=== PATIENT | female | born 1935 | race Caucasian/White ===

== ENCOUNTER → 2016-09-12 | Outpatient (CLI) | payer MEDICARE, MEDICAID ==
[~2016-09-12] VITALS: Ht 147.3 cm; Wt 77.0 kg
[~2016-09-12] MED LIST: ALPR0.255 PO; ASPI-1093 PO; BENA10TA3 PO; BENA20 PO; CARV3 PO; CLOP75 PO; FURO20 PO; FURO40 PO; GLIP10 PO; ISOS10TA16 PO; KDUR10 PO; LEVO25TA9 PO; LORA10TA7 PO; SITA100 PO; SITA50 PO
[2016-09-12 10:56] VITALS: BP 190/70
[2016-09-12 13:11] LABS: GLUCOSE,POINT OF CARE 205 MG/DL (70-110)
== END | disposition home or self-care (01) ==
LOC: SRCNTR 10:49
PROVIDERS: ATTEND Hospitalist
DX: E11.9 Type 2 diabetes mellitus without complications (principal); I12.9 Hypertensive chronic kidney disease with stage 1 through stage 4 chronic kidney disease, or unspecified chronic kidney disease; N18.3 Chronic kidney disease, stage 3 (moderate); I25.10 Atherosclerotic heart disease of native coronary artery without angina pectoris; K21.9 Gastro-esophageal reflux disease without esophagitis; R91.1 Solitary pulmonary nodule; J44.9 Chronic obstructive pulmonary disease, unspecified; I38 Endocarditis, valve unspecified; K52.9 Noninfective gastroenteritis and colitis, unspecified; K57.92 Diverticulitis of intestine, part unspecified, without perforation or abscess without bleeding; E11.65 Type 2 diabetes mellitus with hyperglycemia; I35.0 Nonrheumatic aortic (valve) stenosis; J47.9 Bronchiectasis, uncomplicated; Z99.81 Dependence on supplemental oxygen
CPT/HCPCS: 82962; G0463

== ENCOUNTER 2016-09-13 03:26 | Inpatient (IN) | payer MEDICARE, MEDICAID ==
[~2016-09-13] VITALS: Ht 165.1 cm; Wt 75.9 kg
[~2016-09-13 03:26] MED LIST changes: -BENA20 PO; -FURO40 PO; -LEVO25TA9 PO; -SITA50 PO
[2016-09-13] MEDS ORDERED: IPRATROPIUM BROMIDE 0.5 MG/2.5 ML NEB SOLUTION NEB ONE ×2 (03:37→03:45)
[2016-09-13] MEDS ORDERED: ALBUTEROL SULFATE 2.5 MG/0.5 ML NEB SOLUTION NEB ONE ×3 (03:38→04:00)
[2016-09-13] MEDS ORDERED: ALBUTEROL SULFATE 5 MG/ML 20 ML NEB SOLN [BULK] NEB ONE (03:45)
[2016-09-13] MEDS ORDERED: NITROGLYCERIN 0.4 MG SUBLINGUAL TABLET #25 SL ONE (03:45)
[2016-09-13] MEDS ORDERED: NITROGLYCERIN 50 MG/D5% WATER 250 ML IV PRN (03:45)
[2016-09-13] MEDS ORDERED: FUROSEMIDE 40 MG/4 ML VIAL ONE (03:48)
[2016-09-13 03:55] LABS: ABG BASE EXCESS 0.1 mmol/L (-2.0-3.0); ABG HCO3 23.4 mmol/L (22.0-26.0); ABG OXYHEMOGLOBIN 97.7 % (94.0-100.0); ABG PCO2 59 mmHg (35-45); ABG PH 7.276 (7.35-7.450); TEMPERATURE, FAHRENHEIT, BG 98.6 FAHREN (96.0-98.6)
[2016-09-13 03:56] LABS: ALLEN TEST, BLOOD GAS Positive; IPAP, BG 16 cm H2O
[2016-09-13] MEDS ORDERED: FUROSEMIDE 40 MG/4 ML VIAL IVP ONE (04:00)
[2016-09-13 04:26] LABS: BASOPHILS # (AUTO) 0.05 K/uL (0.00-0.20); BASOPHILS % (AUTO) 0.4 % (0.0-2.0); EOSINOPHILS # (AUTO) 0.24 K/uL (0.00-0.70); EOSINOPHILS % (AUTO) 1.73 % (1.0-6.0); HEMATOCRIT 45.7 % (36-46); HEMOGLOBIN 14.9 g/dL (12.0-16.0); LYMPHOCYTES # (AUTO) 2.2 K/uL (1.0-4.8); MEAN CORPUSCULAR HEMOGLOBIN 29.5 pg (26.0-34.0); MEAN CORPUSCULAR HGB CONC 32.6 G/dL (31.0-37.0); MEAN CORPUSCULAR VOLUME 90 fL (80-100); MONOCYTES # (AUTO) 0.4 K/uL (0.1-1.0); MONOCYTES % (AUTO) 3.1 % (2.0-9.0); NEUTROPHILS # (AUTO) 10.8 K/uL (1.8-7.7); NEUTROPHILS % (AUTO) 78.8 % (40.0-70.0); PLATELET COUNT (AUTO) 255 K/uL (150-450); RED BLOOD CELL COUNT(AUTO) 5.06 MIL/uL (4.00-5.20); RED CELL DISTRIBUTION WIDTH 14.1 % (11.5-14.5); WHITE BLOOD COUNT (AUTO) 13.7 K/uL (4.5-11.0)
[2016-09-13 04:36] LABS: ADD UA MICROSCOPIC YES; APPEARANCE,URINE CLOUDY (CLEAR); GLUCOSE, URINE (UA) 100 mg/dL (NEGATIVE); KETONES,URINE NEGATIVE (NEGATIVE); LEUKOCYTE ESTERASE ,URINE NEGATIVE (NEGATIVE); OCCULT BLOOD,URINE SMALL (NEGATIVE); PROTEIN,URINE SEE CONFIRM (NEGATIVE)
[2016-09-13 04:36] LABS: PROTHROMBIN TIME 10.7 SEC (9.4-11.6)
[2016-09-13 04:39] LABS: ANION GAP 8 mmol/L (8-16); CALCIUM, TOTAL 8.4 mg/dL (8.8-10.5); CARBON DIOXIDE 31 mmol/L (22-29); CHLORIDE 101 mmol/L (98-107); CREATININE 1.13 mg/dL (0.60-1.30); GLOMERULAR FILTR. RATE CALC 46 mL/min (>60); POTASSIUM 4.3 mmol/L (3.5-5.1); SODIUM SERUM 140 mmol/L (136-145); UREA NITROGEN, BLOOD 22 mg/dL (7-18)
[2016-09-13 04:46] LABS: ALANINE AMINOTRANSFERASE 27 U/L (12-78); ALBUMIN 3.4 g/dL (3.4-5.0); ASPARTATE AMINOTRANSFERASE 29 U/L (15-37); BILIRUBIN,TOTAL 0.6 mg/dL (0.1-1.0); CREATINE KINASE, TOTAL 63 U/L (26-192); TOTAL PROTEIN, SERUM 7.4 g/dL (6.4-8.2)
[2016-09-13 04:50] LABS: B-TYPE NATRIURETIC PEPTIDE 243 pg/mL (0-100)
[2016-09-13 04:53] LABS: SULFOSALICYLIC ACID,URINE 3+ (Negative)
[2016-09-13 04:54] LABS: SQUAMOUS EPITHELIAL CELL,UR Few /LPF (None Seen)
[2016-09-13 05:30] VITALS: BP 145/61
[2016-09-13 08:00] VITALS: BP 103/46
[2016-09-13 12:00] VITALS: BP 146/56
[2016-09-13] MEDS ORDERED: ALBUTEROL SULFATE 2.5 MG/0.5 ML NEB SOLUTION NEB PRN (12:00)
[2016-09-13] MEDS ORDERED: DEXTROSE 50%-WATER 25 GM/50 ML SYRINGE IVP PRN (12:00)
[2016-09-13] MEDS ORDERED: ONDANSETRON HCL 4 MG/2 ML VIAL IVP PRN (12:00)
[2016-09-13] MEDS: ALPRAZolam 0.25 MG TABLET PO SCH ×2 (12:00→18:01)
[2016-09-13] MEDS ORDERED: FUROSEMIDE 40 MG/4 ML VIAL IVP SCH (12:00)
[2016-09-13] MEDS ORDERED: OxyCODONE HCL/ACETAMINOPHEN 5-325 MG TABLET PO PRN ×2 (12:00)
[2016-09-13] MEDS ORDERED: IPRATROPIUM BROMIDE 0.5 MG/2.5 ML NEB SOLUTION NEB PRN (12:00)
[2016-09-13] MEDS: ISOSORBIDE DINITRATE 10 MG TABLET PO SCH ×2 (12:00→17:57)
[2016-09-13] MEDS ORDERED: MAGNESIUM HYDROXIDE SUSPENSION 30 ML UDCUP PO PRN (12:00)
[2016-09-13] MEDS ORDERED: ACETAMINOPHEN 325 MG TABLET PO PRN (12:00)
[2016-09-13] MEDS ORDERED: BENAZEPRIL HCL 20 MG TABLET PO SCH (12:00)
[2016-09-13] MEDS ORDERED: 0.9% SODIUM CHLORIDE 10 ML SYRINGE IVP PRN (12:00)
[2016-09-13] MEDS ORDERED: BENA20 PO (12:01)
[2016-09-13] MEDS ORDERED: SITA50 PO (12:01)
[2016-09-13] MEDS ORDERED: FURO40 PO (12:01)
[2016-09-13] MEDS: ASPIRIN 81 MG EC TABLET PO SCH (13:41)
[2016-09-13] MEDS: CARVEDILOL 3.125 MG TABLET PO SCH ×2 (13:42→21:28)
[2016-09-13] MEDS: POTASSIUM CHLORIDE 10 MEQ ER TABLET PO SCH (13:42)
[2016-09-13] MEDS: DOCUSATE SODIUM 100 MG CAPSULE PO SCH ×2 (13:42→21:27)
[2016-09-13] MEDS: CLOPIDOGREL BISULFATE 75 MG TABLET PO SCH (13:43)
[2016-09-13] MEDS: PANTOPRAZOLE SODIUM 40 MG/VIAL IVP SCH (13:53)
[2016-09-13] MEDS: ALBUTEROL SULFATE 2.5 MG/0.5 ML NEB SOLUTION NEB SCH ×3 (14:59→23:12)
[2016-09-13] MEDS: IPRATROPIUM BROMIDE 0.5 MG/2.5 ML NEB SOLUTION NEB SCH ×3 (14:59→23:12)
[2016-09-13 16:00] VITALS: BP 130/52
[2016-09-13 19:27] LABS: GLUCOSE,POINT OF CARE 162 MG/DL (70-110)
[2016-09-13 20:00] VITALS: BP 101/40
[2016-09-14] VITALS: BP 147/70
[2016-09-14] MEDS: ISOSORBIDE DINITRATE 10 MG TABLET PO SCH ×3 (01:01→17:03)
[2016-09-14] MEDS: ALPRAZolam 0.25 MG TABLET PO SCH ×3 (01:01→16:14)
[2016-09-14] MEDS: IPRATROPIUM BROMIDE 0.5 MG/2.5 ML NEB SOLUTION NEB SCH ×4 (02:51→22:49)
[2016-09-14] MEDS: ALBUTEROL SULFATE 2.5 MG/0.5 ML NEB SOLUTION NEB SCH ×3 (02:51→22:49)
[2016-09-14 04:00] VITALS: BP 96/41
[2016-09-14 06:00] LABS: BASOPHILS % (AUTO) 0.4 % (0.0-2.0); HEMATOCRIT 40.4 % (36-46); LYMPHOCYTES # (AUTO) 1.9 K/uL (1.0-4.8); LYMPHOCYTES % (AUTO) 29.3 % (22.0-44.0); MEAN CORPUSCULAR HEMOGLOBIN 29.5 pg (26.0-34.0); MEAN CORPUSCULAR HGB CONC 32.2 G/dL (31.0-37.0); MEAN CORPUSCULAR VOLUME 92 fL (80-100); MONOCYTES # (AUTO) 0.5 K/uL (0.1-1.0); MONOCYTES % (AUTO) 7.8 % (2.0-9.0); NEUTROPHILS # (AUTO) 3.8 K/uL (1.8-7.7); NEUTROPHILS % (AUTO) 59.5 % (40.0-70.0); PLATELET COUNT (AUTO) 247 K/uL (150-450); RED BLOOD CELL COUNT(AUTO) 4.41 MIL/uL (4.00-5.20); RED CELL DISTRIBUTION WIDTH 14.4 % (11.5-14.5); WHITE BLOOD COUNT (AUTO) 6.5 K/uL (4.5-11.0)
[2016-09-14 06:16] LABS: ALBUMIN 2.9 g/dL (3.4-5.0); BILIRUBIN,TOTAL 0.7 mg/dL (0.1-1.0); CALCIUM, TOTAL 8.2 mg/dL (8.8-10.5); CREATININE 1.34 mg/dL (0.60-1.30); MAGNESIUM 2.2 mg/dL (1.80-2.40); POTASSIUM 4.6 mmol/L (3.5-5.1); TOTAL PROTEIN, SERUM 6.8 g/dL (6.4-8.2)
[2016-09-14 06:47] LABS: GLUCOSE,POINT OF CARE 135 MG/DL (70-110)
[2016-09-14 06:47] LABS: GLUCOSE,POINT OF CARE 99 MG/DL (70-110)
[2016-09-14] MEDS: POTASSIUM CHLORIDE 10 MEQ ER TABLET PO SCH (07:46)
[2016-09-14] MEDS: CLOPIDOGREL BISULFATE 75 MG TABLET PO SCH (07:46)
[2016-09-14] MEDS: DOCUSATE SODIUM 100 MG CAPSULE PO SCH ×2 (07:46→20:57)
[2016-09-14] MEDS: CARVEDILOL 3.125 MG TABLET PO SCH ×2 (07:46→20:57)
[2016-09-14] MEDS: PANTOPRAZOLE SODIUM 40 MG/VIAL IVP SCH (07:47)
[2016-09-14] MEDS: ASPIRIN 81 MG EC TABLET PO SCH (07:47)
[2016-09-14 08:00] VITALS: BP 155/56
[2016-09-14] MEDS: BENAZEPRIL HCL 10 MG TABLET PO SCH (09:04)
[2016-09-14] MEDS: INSULIN ASPART 100 UNITS/ML SQ PRN ×3 (11:28→21:10)
[2016-09-14 12:00] VITALS: BP 150/64
[2016-09-14] MEDS ORDERED: FUROSEMIDE 40 MG/4 ML VIAL IVP SCH (12:45)
[2016-09-14] MEDS ORDERED: ALBUTEROL SULFATE 2.5 MG/0.5 ML NEB SOLUTION NEB PRN ×2 (12:45)
[2016-09-14] MEDS: FUROSEMIDE 40 MG/4 ML VIAL IVP SCH (12:45)
[2016-09-14 15:53] VITALS: BP 148/67
[2016-09-14 18:27] LABS: GLUCOSE COMMENT 1 Received Meds; GLUCOSE,POINT OF CARE 214 MG/DL (70-110)
[2016-09-14 19:48] VITALS: BP 151/62
[2016-09-15] VITALS (7 sets, daily range): BP systolic 112–154; BP diastolic 5–67
[2016-09-15] MEDS: ALPRAZolam 0.25 MG TABLET PO SCH ×3 (00:30→15:39)
[2016-09-15] MEDS: ISOSORBIDE DINITRATE 10 MG TABLET PO SCH ×3 (00:30→15:39)
[2016-09-15] MEDS: IPRATROPIUM BROMIDE 0.5 MG/2.5 ML NEB SOLUTION NEB SCH ×6 (03:36→23:11)
[2016-09-15] MEDS: ALBUTEROL SULFATE 2.5 MG/0.5 ML NEB SOLUTION NEB SCH ×6 (03:36→23:11)
[2016-09-15] MEDS: INSULIN ASPART 100 UNITS/ML SQ PRN ×4 (06:01→20:53)
[2016-09-15 06:40] LABS: BASOPHILS % (AUTO) 0.5 % (0.0-2.0); EOSINOPHILS % (AUTO) 5.4 % (1.0-6.0); HEMATOCRIT 41.7 % (36-46); HEMOGLOBIN 13.5 g/dL (12.0-16.0); LYMPHOCYTES # (AUTO) 1.6 K/uL (1.0-4.8); LYMPHOCYTES % (AUTO) 25.9 % (22.0-44.0); MEAN CORPUSCULAR HEMOGLOBIN 29.6 pg (26.0-34.0); MEAN CORPUSCULAR HGB CONC 32.5 G/dL (31.0-37.0); MEAN CORPUSCULAR VOLUME 91 fL (80-100); MONOCYTES # (AUTO) 0.4 K/uL (0.1-1.0); MONOCYTES % (AUTO) 6.6 % (2.0-9.0); NEUTROPHILS # (AUTO) 3.9 K/uL (1.8-7.7); NEUTROPHILS % (AUTO) 61.6 % (40.0-70.0); PLATELET COUNT (AUTO) 250 K/uL (150-450); RED BLOOD CELL COUNT(AUTO) 4.58 MIL/uL (4.00-5.20); RED CELL DISTRIBUTION WIDTH 13.8 % (11.5-14.5); WHITE BLOOD COUNT (AUTO) 6.3 K/uL (4.5-11.0)
[2016-09-15 07:21] LABS: GLUCOSE COMMENT 1 Received Meds; GLUCOSE,POINT OF CARE 149 MG/DL (70-110)
[2016-09-15 07:22] LABS: GLUCOSE COMMENT 1 Received Meds; GLUCOSE,POINT OF CARE 202 MG/DL (70-110)
[2016-09-15 07:22] LABS: GLUCOSE COMMENT 1 Received Meds; GLUCOSE,POINT OF CARE 164 MG/DL (70-110)
[2016-09-15 07:45] LABS: BILIRUBIN,TOTAL 0.6 mg/dL (0.1-1.0); CREATININE 1.06 mg/dL (0.60-1.30); MAGNESIUM 2.2 mg/dL (1.80-2.40); POTASSIUM 5.1 mmol/L (3.5-5.1); TOTAL PROTEIN, SERUM 7.2 g/dL (6.4-8.2)
[2016-09-15] MEDS: BENAZEPRIL HCL 10 MG TABLET PO SCH (08:32)
[2016-09-15] MEDS: DOCUSATE SODIUM 100 MG CAPSULE PO SCH ×2 (08:32→20:48)
[2016-09-15] MEDS: ASPIRIN 81 MG EC TABLET PO SCH (08:32)
[2016-09-15] MEDS: POTASSIUM CHLORIDE 10 MEQ ER TABLET PO SCH (08:32)
[2016-09-15] MEDS: PANTOPRAZOLE SODIUM 40 MG/VIAL IVP SCH (08:32)
[2016-09-15] MEDS: CLOPIDOGREL BISULFATE 75 MG TABLET PO SCH (08:32)
[2016-09-15] MEDS: CARVEDILOL 3.125 MG TABLET PO SCH ×2 (08:32→20:48)
[2016-09-15] MEDS: FUROSEMIDE 40 MG/4 ML VIAL IVP SCH (09:47)
[2016-09-15 14:02] LABS: GLUCOSE,POINT OF CARE 158 MG/DL (70-110)
[2016-09-15 23:17] LABS: GLUCOSE COMMENT 1 Received Meds; GLUCOSE,POINT OF CARE 165 MG/DL (70-110)
[2016-09-16] MEDS: ALPRAZolam 0.25 MG TABLET PO SCH ×3 (00:20→15:51)
[2016-09-16] MEDS: ISOSORBIDE DINITRATE 10 MG TABLET PO SCH ×3 (00:20→15:51)
[2016-09-16] MEDS: IPRATROPIUM BROMIDE 0.5 MG/2.5 ML NEB SOLUTION NEB SCH ×6 (03:00→23:41)
[2016-09-16] MEDS: ALBUTEROL SULFATE 2.5 MG/0.5 ML NEB SOLUTION NEB SCH ×6 (03:00→23:41)
[2016-09-16 03:52] VITALS: BP 107/45
[2016-09-16 06:37] LABS: BASOPHILS # (AUTO) 0.02 K/uL (0.00-0.20); BASOPHILS % (AUTO) 0.3 % (0.0-2.0); EOSINOPHILS # (AUTO) 0.35 K/uL (0.00-0.70); EOSINOPHILS % (AUTO) 5.69 % (1.0-6.0); HEMATOCRIT 41.4 % (36-46); HEMOGLOBIN 13.7 g/dL (12.0-16.0); LYMPHOCYTES # (AUTO) 1.8 K/uL (1.0-4.8); LYMPHOCYTES % (AUTO) 29.7 % (22.0-44.0); MEAN CORPUSCULAR HEMOGLOBIN 29.6 pg (26.0-34.0); MEAN CORPUSCULAR HGB CONC 33.1 G/dL (31.0-37.0); MEAN CORPUSCULAR VOLUME 89 fL (80-100); MONOCYTES # (AUTO) 0.5 K/uL (0.1-1.0); MONOCYTES % (AUTO) 7.6 % (2.0-9.0); NEUTROPHILS # (AUTO) 3.5 K/uL (1.8-7.7); NEUTROPHILS % (AUTO) 56.7 % (40.0-70.0); PLATELET COUNT (AUTO) 238 K/uL (150-450); RED BLOOD CELL COUNT(AUTO) 4.63 MIL/uL (4.00-5.20); RED CELL DISTRIBUTION WIDTH 14.4 % (11.5-14.5); WHITE BLOOD COUNT (AUTO) 6.1 K/uL (4.5-11.0)
[2016-09-16] MEDS: INSULIN ASPART 100 UNITS/ML SQ PRN ×3 (06:50→20:06)
[2016-09-16 07:09] LABS: ALBUMIN 2.9 g/dL (3.4-5.0); BILIRUBIN,TOTAL 0.6 mg/dL (0.1-1.0); CALCIUM, TOTAL 8.8 mg/dL (8.8-10.5); CREATININE 0.95 mg/dL (0.60-1.30); MAGNESIUM 2.1 mg/dL (1.80-2.40); POTASSIUM 4.5 mmol/L (3.5-5.1)
[2016-09-16 08:22] VITALS: BP 161/80
[2016-09-16] MEDS: CLOPIDOGREL BISULFATE 75 MG TABLET PO SCH (08:22)
[2016-09-16] MEDS: BENAZEPRIL HCL 10 MG TABLET PO SCH (08:22)
[2016-09-16] MEDS: CARVEDILOL 3.125 MG TABLET PO SCH ×2 (08:22→20:02)
[2016-09-16] MEDS: DOCUSATE SODIUM 100 MG CAPSULE PO SCH ×2 (08:22→20:02)
[2016-09-16] MEDS: POTASSIUM CHLORIDE 10 MEQ ER TABLET PO SCH (08:22)
[2016-09-16] MEDS: ASPIRIN 81 MG EC TABLET PO SCH (08:22)
[2016-09-16] MEDS: FUROSEMIDE 40 MG TABLET PO SCH (08:22)
[2016-09-16] MEDS: PANTOPRAZOLE SODIUM 40 MG/VIAL IVP SCH (08:23)
[2016-09-16 11:15] VITALS: BP 133/45
[2016-09-16 16:20] VITALS: BP 128/55
[2016-09-16 18:37] LABS: GLUCOSE,POINT OF CARE 119 MG/DL (70-110)
[2016-09-16 19:20] VITALS: BP 145/55
[2016-09-17] VITALS (7 sets, daily range): BP systolic 126–169; BP diastolic 45–61
[2016-09-17] MEDS: ALPRAZolam 0.25 MG TABLET PO SCH ×3 (00:37→15:41)
[2016-09-17] MEDS: ISOSORBIDE DINITRATE 10 MG TABLET PO SCH ×3 (00:37→15:27)
[2016-09-17] MEDS: IPRATROPIUM BROMIDE 0.5 MG/2.5 ML NEB SOLUTION NEB SCH ×5 (03:52→19:21)
[2016-09-17] MEDS: ALBUTEROL SULFATE 2.5 MG/0.5 ML NEB SOLUTION NEB SCH ×5 (03:52→19:21)
[2016-09-17] MEDS: INSULIN ASPART 100 UNITS/ML SQ PRN ×3 (06:45→20:25)
[2016-09-17 07:12] LABS: BASOPHILS % (AUTO) 0.4 % (0.0-2.0); HEMATOCRIT 41.7 % (36-46); HEMOGLOBIN 13.4 g/dL (12.0-16.0); LYMPHOCYTES # (AUTO) 1.6 K/uL (1.0-4.8); LYMPHOCYTES % (AUTO) 25.2 % (22.0-44.0); MEAN CORPUSCULAR HEMOGLOBIN 28.9 pg (26.0-34.0); MEAN CORPUSCULAR HGB CONC 32.2 G/dL (31.0-37.0); MEAN CORPUSCULAR VOLUME 90 fL (80-100); MONOCYTES # (AUTO) 0.6 K/uL (0.1-1.0); MONOCYTES % (AUTO) 9.1 % (2.0-9.0); NEUTROPHILS # (AUTO) 3.8 K/uL (1.8-7.7); NEUTROPHILS % (AUTO) 59.3 % (40.0-70.0); PLATELET COUNT (AUTO) 257 K/uL (150-450); RED BLOOD CELL COUNT(AUTO) 4.64 MIL/uL (4.00-5.20); RED CELL DISTRIBUTION WIDTH 13.7 % (11.5-14.5); WHITE BLOOD COUNT (AUTO) 6.4 K/uL (4.5-11.0)
[2016-09-17 07:29] LABS: CALCIUM, TOTAL 8.9 mg/dL (8.8-10.5); CREATININE 1.01 mg/dL (0.60-1.30); POTASSIUM 4.2 mmol/L (3.5-5.1)
[2016-09-17 07:32] LABS: GLUCOSE,POINT OF CARE 122 MG/DL (70-110)
[2016-09-17 07:32] LABS: GLUCOSE COMMENT 1 Received Meds; GLUCOSE,POINT OF CARE 150 MG/DL (70-110)
[2016-09-17 07:42] LABS: GLUCOSE,POINT OF CARE 170 MG/DL (70-110)
[2016-09-17] MEDS: PANTOPRAZOLE SODIUM 40 MG/VIAL IVP SCH (09:04)
[2016-09-17] MEDS: FUROSEMIDE 40 MG TABLET PO SCH (09:05)
[2016-09-17] MEDS: ASPIRIN 81 MG EC TABLET PO SCH (09:05)
[2016-09-17] MEDS: POTASSIUM CHLORIDE 10 MEQ ER TABLET PO SCH (09:05)
[2016-09-17] MEDS: DOCUSATE SODIUM 100 MG CAPSULE PO SCH ×2 (09:05→20:24)
[2016-09-17] MEDS: CARVEDILOL 3.125 MG TABLET PO SCH ×2 (09:05→20:24)
[2016-09-17] MEDS: CLOPIDOGREL BISULFATE 75 MG TABLET PO SCH (09:05)
[2016-09-17] MEDS: BENAZEPRIL HCL 10 MG TABLET PO SCH (09:05)
[2016-09-17 12:12] LABS: GLUCOSE COMMENT 1 Received Meds; GLUCOSE,POINT OF CARE 181 MG/DL (70-110)
[2016-09-17 12:27] LABS: GLUCOSE COMMENT 1 Received Meds; GLUCOSE,POINT OF CARE 235 MG/DL (70-110)
[2016-09-17 19:57] LABS: GLUCOSE COMMENT 1 Received Meds; GLUCOSE,POINT OF CARE 102 MG/DL (70-110)
[2016-09-17 19:57] LABS: GLUCOSE COMMENT 1 Received Meds; GLUCOSE,POINT OF CARE 150 MG/DL (70-110)
[2016-09-18] MEDS: ALPRAZolam 0.25 MG TABLET PO SCH ×3 (00:01→16:01)
[2016-09-18] MEDS: ISOSORBIDE DINITRATE 10 MG TABLET PO SCH ×3 (00:02→16:01)
[2016-09-18] MEDS: IPRATROPIUM BROMIDE 0.5 MG/2.5 ML NEB SOLUTION NEB SCH ×7 (00:02→23:23)
[2016-09-18] MEDS: ALBUTEROL SULFATE 2.5 MG/0.5 ML NEB SOLUTION NEB SCH ×7 (00:02→23:23)
[2016-09-18 04:24] VITALS: BP 136/47
[2016-09-18] MEDS: INSULIN ASPART 100 UNITS/ML SQ PRN ×3 (06:03→20:42)
[2016-09-18 07:54] VITALS: BP 130/55
[2016-09-18] MEDS: DOCUSATE SODIUM 100 MG CAPSULE PO SCH ×2 (08:29→20:40)
[2016-09-18] MEDS: CLOPIDOGREL BISULFATE 75 MG TABLET PO SCH (08:29)
[2016-09-18] MEDS: ASPIRIN 81 MG EC TABLET PO SCH (08:29)
[2016-09-18] MEDS: POTASSIUM CHLORIDE 10 MEQ ER TABLET PO SCH (08:29)
[2016-09-18] MEDS: FUROSEMIDE 40 MG TABLET PO SCH (08:29)
[2016-09-18] MEDS: PANTOPRAZOLE SODIUM 40 MG/VIAL IVP SCH (08:29)
[2016-09-18] MEDS: CARVEDILOL 3.125 MG TABLET PO SCH ×2 (09:00→20:40)
[2016-09-18] MEDS: BENAZEPRIL HCL 10 MG TABLET PO SCH (09:00)
[2016-09-18 11:33] VITALS: BP 143/49
[2016-09-18 11:43] LABS: GLUCOSE COMMENT 1 Received Meds; GLUCOSE,POINT OF CARE 147 MG/DL (70-110)
[2016-09-18 16:07] VITALS: BP 126/47
[2016-09-18 19:54] VITALS: BP 150/47
[2016-09-18 19:57] LABS: GLUCOSE,POINT OF CARE 151 MG/DL (70-110)
[2016-09-18 23:17] VITALS: BP 151/60
[2016-09-18] MEDS: BUDESONIDE 0.5 MG/2 ML NEB SOLUTION NEB SCH (23:23)
[2016-09-19] MEDS: ISOSORBIDE DINITRATE 10 MG TABLET PO SCH ×3 (00:34→17:13)
[2016-09-19] MEDS: ALPRAZolam 0.25 MG TABLET PO SCH ×3 (00:34→17:13)
[2016-09-19] MEDS: IPRATROPIUM BROMIDE 0.5 MG/2.5 ML NEB SOLUTION NEB SCH ×6 (03:38→23:02)
[2016-09-19] MEDS: ALBUTEROL SULFATE 2.5 MG/0.5 ML NEB SOLUTION NEB SCH ×6 (03:38→23:02)
[2016-09-19 04:10] VITALS: BP 126/50
[2016-09-19 06:20] LABS: BASOPHILS # (AUTO) 0.03 K/uL (0.00-0.20); BASOPHILS % (AUTO) 0.5 % (0.0-2.0); EOSINOPHILS # (AUTO) 0.44 K/uL (0.00-0.70); EOSINOPHILS % (AUTO) 6.58 % (1.0-6.0); HEMATOCRIT 40.4 % (36-46); HEMOGLOBIN 13.5 g/dL (12.0-16.0); LYMPHOCYTES # (AUTO) 1.7 K/uL (1.0-4.8); LYMPHOCYTES % (AUTO) 25.1 % (22.0-44.0); MEAN CORPUSCULAR HEMOGLOBIN 29.8 pg (26.0-34.0); MEAN CORPUSCULAR HGB CONC 33.3 G/dL (31.0-37.0); MEAN CORPUSCULAR VOLUME 89 fL (80-100); MONOCYTES # (AUTO) 0.5 K/uL (0.1-1.0); MONOCYTES % (AUTO) 7.3 % (2.0-9.0); NEUTROPHILS % (AUTO) 60.5 % (40.0-70.0); PLATELET COUNT (AUTO) 254 K/uL (150-450); RED BLOOD CELL COUNT(AUTO) 4.53 MIL/uL (4.00-5.20); RED CELL DISTRIBUTION WIDTH 13.9 % (11.5-14.5); WHITE BLOOD COUNT (AUTO) 6.6 K/uL (4.5-11.0)
[2016-09-19] MEDS: INSULIN ASPART 100 UNITS/ML SQ PRN ×3 (06:39→17:48)
[2016-09-19 07:10] LABS: ALBUMIN 2.9 g/dL (3.4-5.0); BILIRUBIN,TOTAL 0.5 mg/dL (0.1-1.0); CALCIUM, TOTAL 8.8 mg/dL (8.8-10.5); CREATININE 1.15 mg/dL (0.60-1.30); PHOSPHORUS 4.8 mg/dL (2.5-4.9); POTASSIUM 4.3 mmol/L (3.5-5.1); THYROID STIMULATING HORMONE 5.61 uIU/mL (0.36-3.74)
[2016-09-19] MEDS: BUDESONIDE 0.5 MG/2 ML NEB SOLUTION NEB SCH ×2 (07:34→19:07)
[2016-09-19 07:39] VITALS: BP 126/50
[2016-09-19] MEDS: PANTOPRAZOLE SODIUM 40 MG/VIAL IVP SCH (08:02)
[2016-09-19] MEDS: BENAZEPRIL HCL 10 MG TABLET PO SCH (08:02)
[2016-09-19] MEDS: CLOPIDOGREL BISULFATE 75 MG TABLET PO SCH (08:02)
[2016-09-19] MEDS: ASPIRIN 81 MG EC TABLET PO SCH (08:02)
[2016-09-19] MEDS: POTASSIUM CHLORIDE 10 MEQ ER TABLET PO SCH (08:02)
[2016-09-19] MEDS: CARVEDILOL 3.125 MG TABLET PO SCH ×2 (08:02→21:14)
[2016-09-19] MEDS: FUROSEMIDE 40 MG TABLET PO SCH (08:02)
[2016-09-19] MEDS: DOCUSATE SODIUM 100 MG CAPSULE PO SCH ×2 (08:02→21:13)
[2016-09-19 09:58] LABS: ABG A-A DIFF O2 45.7 mmHg (10-20.0); ABG BASE EXCESS 6.2 mmol/L (-2.0-3.0); ABG HCO3 28.2 mmol/L (22.0-26.0); ABG OXYHEMOGLOBIN 74.1 % (94.0-100.0); ABG PCO2 54 mmHg (35-45); ABG PH 7.382 (7.35-7.450); ALLEN TEST, BLOOD GAS Positive; TEMPERATURE, FAHRENHEIT, BG 98.6 FAHREN (96.0-98.6)
[2016-09-19 11:39] VITALS: BP 124/42
[2016-09-19 15:33] VITALS: BP 122/55
[2016-09-19 18:07] LABS: GLUCOSE COMMENT 1 Received Meds; GLUCOSE,POINT OF CARE 137 MG/DL (70-110)
[2016-09-19 18:08] LABS: GLUCOSE COMMENT 1 Received Meds; GLUCOSE,POINT OF CARE 222 MG/DL (70-110)
[2016-09-19 18:08] LABS: GLUCOSE COMMENT 1 Received Meds; GLUCOSE,POINT OF CARE 121 MG/DL (70-110)
[2016-09-19 18:12] LABS: GLUCOSE COMMENT 1 Received Meds; GLUCOSE,POINT OF CARE 150 MG/DL (70-110)
[2016-09-19 18:12] LABS: GLUCOSE COMMENT 1 Received Meds; GLUCOSE,POINT OF CARE 206 MG/DL (70-110)
[2016-09-19 18:12] LABS: GLUCOSE COMMENT 1 Received Meds; GLUCOSE,POINT OF CARE 170 MG/DL (70-110)
[2016-09-19 19:23] VITALS: BP 138/47
[2016-09-19 23:32] VITALS: BP 148/64
[2016-09-20] MEDS: ISOSORBIDE DINITRATE 10 MG TABLET PO SCH ×3 (00:21→15:28)
[2016-09-20] MEDS: ALPRAZolam 0.25 MG TABLET PO SCH ×3 (00:21→15:28)
[2016-09-20] MEDS: ALBUTEROL SULFATE 2.5 MG/0.5 ML NEB SOLUTION NEB SCH ×6 (02:43→23:07)
[2016-09-20] MEDS: IPRATROPIUM BROMIDE 0.5 MG/2.5 ML NEB SOLUTION NEB SCH ×6 (02:43→23:07)
[2016-09-20 04:43] VITALS: BP 138/53
[2016-09-20] MEDS: INSULIN ASPART 100 UNITS/ML SQ PRN ×3 (06:30→21:11)
[2016-09-20] MEDS: BUDESONIDE 0.5 MG/2 ML NEB SOLUTION NEB SCH ×2 (07:39→19:33)
[2016-09-20 07:58] VITALS: BP 154/58
[2016-09-20] MEDS: ASPIRIN 81 MG EC TABLET PO SCH (08:19)
[2016-09-20] MEDS: CLOPIDOGREL BISULFATE 75 MG TABLET PO SCH (08:19)
[2016-09-20] MEDS: POTASSIUM CHLORIDE 10 MEQ ER TABLET PO SCH (08:19)
[2016-09-20] MEDS: FUROSEMIDE 40 MG TABLET PO SCH (08:19)
[2016-09-20] MEDS: PANTOPRAZOLE SODIUM 40 MG/VIAL IVP SCH (08:19)
[2016-09-20] MEDS: BENAZEPRIL HCL 10 MG TABLET PO SCH (08:20)
[2016-09-20] MEDS: DOCUSATE SODIUM 100 MG CAPSULE PO SCH ×2 (08:20→21:11)
[2016-09-20] MEDS: CARVEDILOL 3.125 MG TABLET PO SCH ×2 (08:20→21:11)
[2016-09-20 11:37] VITALS: BP 109/41
[2016-09-20 14:42] VITALS: BP 127/46
[2016-09-20 15:27] LABS: GLUCOSE,POINT OF CARE 135 MG/DL (70-110)
[2016-09-20 16:07] LABS: GLUCOSE COMMENT 1 Received Meds; GLUCOSE,POINT OF CARE 181 MG/DL (70-110)
[2016-09-20 17:22] LABS: GLUCOSE,POINT OF CARE 106 MG/DL (70-110)
[2016-09-20] MEDS ORDERED: LEVOTHYROXINE SODIUM 25 MCG TABLET PO ONE (18:30)
[2016-09-20 21:36] VITALS: BP 146/59
[2016-09-21] MEDS: ISOSORBIDE DINITRATE 10 MG TABLET PO SCH ×2 (00:01→07:58)
[2016-09-21] MEDS: ALPRAZolam 0.25 MG TABLET PO SCH ×2 (00:01→07:56)
[2016-09-21 00:04] VITALS: BP 122/55
[2016-09-21] MEDS: IPRATROPIUM BROMIDE 0.5 MG/2.5 ML NEB SOLUTION NEB SCH ×2 (02:59→07:25)
[2016-09-21] MEDS: ALBUTEROL SULFATE 2.5 MG/0.5 ML NEB SOLUTION NEB SCH ×2 (02:59→07:25)
[2016-09-21 05:06] VITALS: BP 124/43
[2016-09-21] MEDS ORDERED: LEVOTHYROXINE SODIUM 25 MCG TABLET PO SCH (06:30)
[2016-09-21] MEDS: BUDESONIDE 0.5 MG/2 ML NEB SOLUTION NEB SCH (07:25)
[2016-09-21 07:49] VITALS: BP 131/49
[2016-09-21] MEDS: BENAZEPRIL HCL 10 MG TABLET PO SCH (07:56)
[2016-09-21] MEDS: ASPIRIN 81 MG EC TABLET PO SCH (07:56)
[2016-09-21] MEDS: DOCUSATE SODIUM 100 MG CAPSULE PO SCH (07:56)
[2016-09-21] MEDS: CLOPIDOGREL BISULFATE 75 MG TABLET PO SCH (07:56)
[2016-09-21] MEDS: FUROSEMIDE 40 MG TABLET PO SCH (07:57)
[2016-09-21] MEDS: CARVEDILOL 3.125 MG TABLET PO SCH (07:57)
[2016-09-21] MEDS: POTASSIUM CHLORIDE 10 MEQ ER TABLET PO SCH (07:57)
[2016-09-21] MEDS: PANTOPRAZOLE SODIUM 40 MG/VIAL IVP SCH (07:58)
[2016-09-23 19:47] LABS: GLUCOSE COMMENT 1 Received Meds; GLUCOSE,POINT OF CARE 177 MG/DL (70-110)
[2016-09-23 19:47] LABS: GLUCOSE,POINT OF CARE 131 MG/DL (70-110)
[2016-10-06] MEDS ORDERED: LEVO25TA9 PO (09:33)
== END 2016-09-21 09:55 | disposition home health service (06) | DRG 133 ==
LOC: EMS 03:28 → ICU 04:30 → 5S 09-14 15:01
PROVIDERS: ADMIT Internal Medicine; ATTEND Internal Medicine
PROC: 5A09357 Assistance with Respiratory Ventilation, Less than 24 Consecutive Hours, Continuous Positive Airway Pressure (ICD-10-PCS; principal; 2016-09-13)
DX: J96.01 Acute respiratory failure with hypoxia (principal); I50.33 Acute on chronic diastolic (congestive) heart failure; J44.1 Chronic obstructive pulmonary disease with (acute) exacerbation; E11.51 Type 2 diabetes mellitus with diabetic peripheral angiopathy without gangrene; I11.0 Hypertensive heart disease with heart failure; J96.02 Acute respiratory failure with hypercapnia; E78.5 Hyperlipidemia, unspecified; I48.0 Paroxysmal atrial fibrillation; I25.10 Atherosclerotic heart disease of native coronary artery without angina pectoris; E11.9 Type 2 diabetes mellitus without complications; E78.00 Pure hypercholesterolemia, unspecified; I73.9 Peripheral vascular disease, unspecified; I35.1 Nonrheumatic aortic (valve) insufficiency; I25.9 Chronic ischemic heart disease, unspecified; R91.1 Solitary pulmonary nodule; N28.9 Disorder of kidney and ureter, unspecified; Z79.899 Other long term (current) drug therapy; Z79.82 Long term (current) use of aspirin; Z79.4 Long term (current) use of insulin; Z79.84 Long term (current) use of oral hypoglycemic drugs; Z79.891 Long term (current) use of opiate analgesic; Z79.02 Long term (current) use of antithrombotics/antiplatelets; Z95.1 Presence of aortocoronary bypass graft; Z95.5 Presence of coronary angioplasty implant and graft; Z98.890 Other specified postprocedural states; Z99.81 Dependence on supplemental oxygen; Z80.8 Family history of malignant neoplasm of other organs or systems; Z83.6 Family history of other diseases of the respiratory system
CPT/HCPCS: 71250; 82805; 82962; 83605; 83735; 84100; 84443; 87081; 93005; 93306; 94640; 94644; 94660; 96374; 97116; 97162; 97530; 99291; C9113; J1940; J3490

== ENCOUNTER → 2016-10-06 | Outpatient (CLI) | payer MEDICARE, MEDICAID ==
[~2016-10-06] VITALS: Ht 152.4 cm; Wt 76.0 kg
[~2016-10-06] MED LIST changes: -BENA10TA3 PO; +BENA20 PO; -FURO20 PO; +FURO40 PO; +LEVO25TA9 PO; -SITA100 PO; +SITA50 PO
[2016-10-06 09:25] VITALS: BP 172/67
[2016-10-06 11:36] LABS: GLUCOSE,POINT OF CARE 195 MG/DL (70-110)
== END | disposition home or self-care (01) ==
LOC: SRCNTR 09:19
PROVIDERS: ATTEND Hospitalist
DX: I12.9 Hypertensive chronic kidney disease with stage 1 through stage 4 chronic kidney disease, or unspecified chronic kidney disease (principal); N18.3 Chronic kidney disease, stage 3 (moderate); E11.22 Type 2 diabetes mellitus with diabetic chronic kidney disease; I25.10 Atherosclerotic heart disease of native coronary artery without angina pectoris; K21.9 Gastro-esophageal reflux disease without esophagitis; R91.1 Solitary pulmonary nodule; J44.9 Chronic obstructive pulmonary disease, unspecified; K57.92 Diverticulitis of intestine, part unspecified, without perforation or abscess without bleeding; I35.0 Nonrheumatic aortic (valve) stenosis; J47.9 Bronchiectasis, uncomplicated; I38 Endocarditis, valve unspecified; E03.9 Hypothyroidism, unspecified; E78.5 Hyperlipidemia, unspecified; I48.91 Unspecified atrial fibrillation; I50.9 Heart failure, unspecified; S22.39XD Fracture of one rib, unspecified side, subsequent encounter for fracture with routine healing; X58.XXXD Exposure to other specified factors, subsequent encounter; Z99.81 Dependence on supplemental oxygen
CPT/HCPCS: 82962; G0463

== ENCOUNTER → 2016-10-12 | Outpatient (CLI) | payer MEDICARE, MEDICAID ==
[2016-10-12 14:15] VITALS: BP 167/80
== END | disposition home or self-care (01) ==
LOC: SRCNTR 13:47
PROVIDERS: ATTEND Internal Medicine Critical Care Medicine
DX: J96.02 Acute respiratory failure with hypercapnia (principal); J44.1 Chronic obstructive pulmonary disease with (acute) exacerbation; I50.31 Acute diastolic (congestive) heart failure; J96.01 Acute respiratory failure with hypoxia
CPT/HCPCS: G0463

== ENCOUNTER → 2016-10-14 | Outpatient (CLI) | payer MEDICARE, MEDICAID ==
[~2016-10-14] MED LIST changes: +BENA10TA3 PO; +FURO20 PO; +SITA100 PO
== END | disposition home or self-care (01) ==
LOC: RADMN 10:37
PROVIDERS: ATTEND Internal Medicine Critical Care Medicine
DX: J44.9 Chronic obstructive pulmonary disease, unspecified (principal); R91.8 Other nonspecific abnormal finding of lung field; J98.11 Atelectasis; J84.10 Pulmonary fibrosis, unspecified; I51.7 Cardiomegaly; I70.0 Atherosclerosis of aorta; I25.10 Atherosclerotic heart disease of native coronary artery without angina pectoris; K44.9 Diaphragmatic hernia without obstruction or gangrene; K80.20 Calculus of gallbladder without cholecystitis without obstruction; J90 Pleural effusion, not elsewhere classified; Z95.2 Presence of prosthetic heart valve; D18.09 Hemangioma of other sites; I28.8 Other diseases of pulmonary vessels
CPT/HCPCS: 71250

== ENCOUNTER 2016-10-26 11:39 | Inpatient (IN) | payer MEDICARE, MEDICAID ==
[~2016-10-26] VITALS: Ht 154.9 cm; Wt 76.0 kg
[~2016-10-26 11:39] MED LIST changes: -BENA10TA3 PO; -FURO20 PO; -SITA100 PO
[2016-10-26] MEDS ORDERED: ALBUTEROL SULFATE 2.5 MG/0.5 ML NEB SOLUTION NEB ONE ×2 (13:15→18:30)
[2016-10-26] MEDS ORDERED: IPRATROPIUM BROMIDE 0.5 MG/2.5 ML NEB SOLUTION NEB ONE (13:15)
[2016-10-26] MEDS ORDERED: 0.9% SODIUM CHLORIDE 5 ML NEB SOLUTION NEB ONE (13:22)
[2016-10-26 13:31] LABS: BASOPHILS % (AUTO) 0.4 % (0.0-2.0); EOSINOPHILS % (AUTO) 0.2 % (1.0-6.0); HEMATOCRIT 38.9 % (36-46); HEMOGLOBIN 12.4 g/dL (12.0-16.0); LYMPHOCYTES # (AUTO) 1.2 K/uL (1.0-4.8); LYMPHOCYTES % (AUTO) 7.7 % (22.0-44.0); MEAN CORPUSCULAR HEMOGLOBIN 28.5 pg (26.0-34.0); MEAN CORPUSCULAR VOLUME 89 fL (80-100); MONOCYTES # (AUTO) 1.1 K/uL (0.1-1.0); MONOCYTES % (AUTO) 6.9 % (2.0-9.0); NEUTROPHILS # (AUTO) 13.8 K/uL (1.8-7.7); NEUTROPHILS % (AUTO) 84.8 % (40.0-70.0); PLATELET COUNT (AUTO) 305 K/uL (150-450); RED BLOOD CELL COUNT(AUTO) 4.36 MIL/uL (4.00-5.20); RED CELL DISTRIBUTION WIDTH 15.7 % (11.5-14.5); WHITE BLOOD COUNT (AUTO) 16.3 K/uL (4.5-11.0)
[2016-10-26 13:43] LABS: ANION GAP 4 mmol/L (8-16); CALCIUM, TOTAL 8.8 mg/dL (8.8-10.5); CARBON DIOXIDE 31 mmol/L (22-29); CHLORIDE 98 mmol/L (98-107); CREATININE 1.51 mg/dL (0.60-1.30); GLOMERULAR FILTR. RATE CALC 33 mL/min (>60); POTASSIUM 4.9 mmol/L (3.5-5.1); SODIUM SERUM 133 mmol/L (136-145); UREA NITROGEN, BLOOD 35 mg/dL (7-18)
[2016-10-26] MEDS ORDERED: CefTRIAXone 1 GM/DEXTROSE 50 ML IV ONE (14:15)
[2016-10-26] MEDS ORDERED: MethylPREDNISolone SOD SUCC 125 MG/2 ML VIAL IVP ONE (14:15)
[2016-10-26 14:38] LABS: CREATINE KINASE, TOTAL 67 U/L (26-192)
[2016-10-26 15:37] LABS: B-TYPE NATRIURETIC PEPTIDE 301 pg/mL (0-100)
[2016-10-26 15:47] LABS: GLUCOSE,POINT OF CARE 92 MG/DL (70-110)
[2016-10-26 18:49] VITALS: BP 120/49
[2016-10-26 19:38] VITALS: BP 127/64
[2016-10-26] MEDS ORDERED: DEXTROSE 50%-WATER 25 GM/50 ML SYRINGE IVP PRN (20:15)
[2016-10-26] MEDS ORDERED: ALPRAZolam 0.25 MG TABLET PO PRN (20:15)
[2016-10-26] MEDS ORDERED: INSULIN ASPART 100 UNITS/ML SQ PRN (20:15)
[2016-10-26] MEDS: CARVEDILOL 3.125 MG TABLET PO SCH (21:00)
[2016-10-26 23:33] VITALS: BP 129/53
[2016-10-27] MEDS: MethylPREDNISolone SOD SUCC 125 MG/2 ML VIAL IVP SCH ×5 (00:08→23:44)
[2016-10-27] MEDS ORDERED: IPRATROPIUM BROMIDE 0.5 MG/2.5 ML NEB SOLUTION NEB SCH (02:00)
[2016-10-27] MEDS: ALBUTEROL SULFATE 2.5 MG/0.5 ML NEB SOLUTION NEB PRN ×3 (02:03→23:44)
[2016-10-27] MEDS: IPRATROPIUM BROMIDE 0.5 MG/2.5 ML NEB SOLUTION NEB SCH ×4 (02:03→20:17)
[2016-10-27 03:53] VITALS: BP 118/45
[2016-10-27] MEDS: GlipiZIDE 10 MG TABLET PO SCH ×2 (06:02→18:01)
[2016-10-27] MEDS: LEVOTHYROXINE SODIUM 25 MCG TABLET PO SCH (06:02)
[2016-10-27] MEDS ORDERED: DEXTROSE 50%-WATER 25 GM/50 ML SYRINGE IVP PRN (06:15)
[2016-10-27] MEDS ORDERED: OxyCODONE HCL/ACETAMINOPHEN 5-325 MG TABLET PO PRN ×2 (06:15)
[2016-10-27] MEDS ORDERED: 0.9% SODIUM CHLORIDE 10 ML SYRINGE IVP PRN (06:15)
[2016-10-27] MEDS ORDERED: CefTRIAXone 1 GM/DEXTROSE 50 ML IV SCH (06:15)
[2016-10-27] MEDS ORDERED: ONDANSETRON HCL 4 MG/2 ML VIAL IVP PRN (06:15)
[2016-10-27 07:37] LABS: GLUCOSE COMMENT 1 Received Meds; GLUCOSE,POINT OF CARE 283 MG/DL (70-110)
[2016-10-27 07:51] VITALS: BP 141/54
[2016-10-27 08:02] LABS: HEMATOCRIT 39.1 % (36-46); HEMOGLOBIN 12.4 g/dL (12.0-16.0); MEAN CORPUSCULAR HEMOGLOBIN 28.6 pg (26.0-34.0); MEAN CORPUSCULAR HGB CONC 31.8 G/dL (31.0-37.0); MEAN CORPUSCULAR VOLUME 90 fL (80-100); PLATELET COUNT (AUTO) 350 K/uL (150-450); RED BLOOD CELL COUNT(AUTO) 4.35 MIL/uL (4.00-5.20); WHITE BLOOD COUNT (AUTO) 15.5 K/uL (4.5-11.0)
[2016-10-27 08:09] LABS: CALCIUM, TOTAL 8.9 mg/dL (8.8-10.5); CREATININE 1.63 mg/dL (0.60-1.30); POTASSIUM 5.5 mmol/L (3.5-5.1)
[2016-10-27 08:48] LABS: GLUCOSE,POINT OF CARE 249 MG/DL (70-110)
[2016-10-27] MEDS ORDERED: FUROSEMIDE 40 MG TABLET PO SCH (09:00)
[2016-10-27] MEDS: PANTOPRAZOLE SODIUM 40 MG/VIAL IVP SCH (09:24)
[2016-10-27] MEDS: FUROSEMIDE 40 MG/4 ML VIAL IVP SCH ×2 (09:25→20:16)
[2016-10-27] MEDS: LORATADINE 10 MG TABLET PO SCH (09:32)
[2016-10-27] MEDS: DOCUSATE SODIUM 100 MG CAPSULE PO SCH ×2 (09:32→20:17)
[2016-10-27] MEDS: CLOPIDOGREL BISULFATE 75 MG TABLET PO SCH (09:33)
[2016-10-27] MEDS: ASPIRIN 81 MG EC TABLET PO SCH (09:35)
[2016-10-27] MEDS: POTASSIUM CHLORIDE 10 MEQ ER TABLET PO SCH (09:35)
[2016-10-27] MEDS: CARVEDILOL 3.125 MG TABLET PO SCH ×2 (09:35→20:16)
[2016-10-27] MEDS: SitaGLIPtin PHOSPHATE 50 MG TABLET PO SCH (09:36)
[2016-10-27] MEDS: ISOSORBIDE DINITRATE 10 MG TABLET PO SCH ×4 (09:36→23:44)
[2016-10-27] MEDS: BENAZEPRIL HCL 20 MG TABLET PO SCH (09:42)
[2016-10-27] MEDS ORDERED: SODIUM POLYSTYRENE SULFONATE 15 GM/60 ML SUSPENSION BOTTLE PO ONE (11:00)
[2016-10-27 11:16] VITALS: BP 144/53
[2016-10-27 11:37] LABS: BAND NEUTROPHILS % (MANUAL) 29 % (1-5); LYMPHOCYTES % (MANUAL) 4 % (22-44); TOTAL CELLS COUNTED 100
[2016-10-27] MEDS: INSULIN ASPART 100 UNITS/ML SQ PRN ×3 (12:15→20:18)
[2016-10-27] MEDS ORDERED: SODIUM CHLORIDE 0.9% 100 ML ONE (14:35)
[2016-10-27] MEDS: CefTRIAXone 1 GM/DEXTROSE 50 ML IV SCH (14:41)
[2016-10-27 14:52] LABS: GLUCOSE,POINT OF CARE 292 MG/DL (70-110)
[2016-10-27 15:00] VITALS: BP 141/56
[2016-10-27 17:43] LABS: APPEARANCE,URINE CLOUDY (CLEAR); GLUCOSE, URINE (UA) NEGATIVE (NEGATIVE); KETONES,URINE NEGATIVE (NEGATIVE); LEUKOCYTE ESTERASE ,URINE TRACE (NEGATIVE); OCCULT BLOOD,URINE NEGATIVE (NEGATIVE); PROTEIN,URINE NEGATIVE (NEGATIVE)
[2016-10-27 17:45] LABS: ADD UA MICROSCOPIC YES
[2016-10-27 18:25] LABS: RBC,URINE None Seen /HPF (0-2); SQUAMOUS EPITHELIAL CELL,UR Few /LPF (None Seen); TRANSITIONAL EPI CELLS,URINE Few /LPF (None Seen)
[2016-10-27 19:31] VITALS: BP 148/57
[2016-10-27 20:02] LABS: GLUCOSE COMMENT 1 Received Meds; GLUCOSE,POINT OF CARE 201 MG/DL (70-110)
[2016-10-27 21:51] LABS: GLUCOSE,POINT OF CARE 210 MG/DL (70-110)
[2016-10-27] MEDS ORDERED: 0.9% SODIUM CHLORIDE 5 ML NEB SOLUTION NEB ONE (23:42)
[2016-10-28 00:08] VITALS: BP 145/56
[2016-10-28] MEDS: IPRATROPIUM BROMIDE 0.5 MG/2.5 ML NEB SOLUTION NEB SCH ×4 (02:54→19:51)
[2016-10-28] MEDS: ALBUTEROL SULFATE 2.5 MG/0.5 ML NEB SOLUTION NEB PRN ×2 (02:54→08:38)
[2016-10-28 04:01] VITALS: BP 138/59
[2016-10-28] MEDS: INSULIN ASPART 100 UNITS/ML SQ PRN ×4 (06:06→21:02)
[2016-10-28] MEDS: MethylPREDNISolone SOD SUCC 125 MG/2 ML VIAL IVP SCH ×3 (06:07→18:24)
[2016-10-28] MEDS: LEVOTHYROXINE SODIUM 25 MCG TABLET PO SCH (06:07)
[2016-10-28] MEDS: GlipiZIDE 10 MG TABLET PO SCH ×2 (06:08→18:47)
[2016-10-28 06:37] LABS: BASOPHILS % (AUTO) 0.1 % (0.0-2.0); EOSINOPHILS % (AUTO) 0 % (1.0-6.0); HEMATOCRIT 38.2 % (36-46); HEMOGLOBIN 12.1 g/dL (12.0-16.0); LYMPHOCYTES # (AUTO) 0.6 K/uL (1.0-4.8); LYMPHOCYTES % (AUTO) 3.4 % (22.0-44.0); MEAN CORPUSCULAR HEMOGLOBIN 28.6 pg (26.0-34.0); MEAN CORPUSCULAR HGB CONC 31.7 G/dL (31.0-37.0); MEAN CORPUSCULAR VOLUME 90 fL (80-100); MONOCYTES # (AUTO) 0.3 K/uL (0.1-1.0); MONOCYTES % (AUTO) 1.7 % (2.0-9.0); NEUTROPHILS # (AUTO) 17.2 K/uL (1.8-7.7); PLATELET COUNT (AUTO) 401 K/uL (150-450); RED BLOOD CELL COUNT(AUTO) 4.25 MIL/uL (4.00-5.20); RED CELL DISTRIBUTION WIDTH 15.5 % (11.5-14.5); WHITE BLOOD COUNT (AUTO) 18.2 K/uL (4.5-11.0)
[2016-10-28 06:42] LABS: CALCIUM, TOTAL 8.8 mg/dL (8.8-10.5); CREATININE 1.76 mg/dL (0.60-1.30); POTASSIUM 3.8 mmol/L (3.5-5.1)
[2016-10-28 07:15] LABS: NEUTROPHILS % (AUTO) 94.8 % (40.0-70.0)
[2016-10-28 07:18] VITALS: BP_SYST 137; BP_DIAS 137; BP_DIAS 58
[2016-10-28 07:32] LABS: GLUCOSE COMMENT 1 Received Meds; GLUCOSE,POINT OF CARE 271 MG/DL (70-110)
[2016-10-28] MEDS: FUROSEMIDE 40 MG/4 ML VIAL IVP SCH ×2 (08:47→20:59)
[2016-10-28] MEDS: PANTOPRAZOLE SODIUM 40 MG/VIAL IVP SCH (08:47)
[2016-10-28] MEDS: CLOPIDOGREL BISULFATE 75 MG TABLET PO SCH (08:48)
[2016-10-28] MEDS: ASPIRIN 81 MG EC TABLET PO SCH (08:48)
[2016-10-28] MEDS: POTASSIUM CHLORIDE 10 MEQ ER TABLET PO SCH (08:48)
[2016-10-28] MEDS: CARVEDILOL 3.125 MG TABLET PO SCH ×2 (08:48→20:59)
[2016-10-28] MEDS: SitaGLIPtin PHOSPHATE 50 MG TABLET PO SCH (08:48)
[2016-10-28] MEDS: LORATADINE 10 MG TABLET PO SCH (08:48)
[2016-10-28] MEDS: ISOSORBIDE DINITRATE 10 MG TABLET PO SCH ×2 (08:48→16:27)
[2016-10-28] MEDS: BENAZEPRIL HCL 20 MG TABLET PO SCH (08:49)
[2016-10-28] MEDS: DOCUSATE SODIUM 100 MG CAPSULE PO SCH ×2 (08:50→20:59)
[2016-10-28 11:13] VITALS: BP 137/58
[2016-10-28 12:42] LABS: GLUCOSE COMMENT 1 Received Meds; GLUCOSE,POINT OF CARE 351 MG/DL (70-110)
[2016-10-28] MEDS ORDERED: SODIUM CHLORIDE 0.9% 100 ML ONE (13:58)
[2016-10-28] MEDS: CefTRIAXone 1 GM/DEXTROSE 50 ML IV SCH (14:00)
[2016-10-28 15:35] VITALS: BP 136/54
[2016-10-28] MEDS ORDERED: LEVALBUTEROL HCL 0.63 MG/3 ML NEB SOLUTION NEB PRN (15:45)
[2016-10-28] MEDS ORDERED: ALBUTEROL SULFATE 2.5 MG/0.5 ML NEB SOLUTION NEB ONE (16:08)
[2016-10-28] MEDS: LEVALBUTEROL HCL 0.63 MG/3 ML NEB SOLUTION NEB SCH ×2 (19:51→23:30)
[2016-10-28 19:54] VITALS: BP 132/60
[2016-10-28 20:12] LABS: GLUCOSE COMMENT 1 Received Meds; GLUCOSE,POINT OF CARE 295 MG/DL (70-110)
[2016-10-29] VITALS (7 sets, daily range): BP systolic 122–182; BP diastolic 57–94
[2016-10-29] MEDS: MethylPREDNISolone SOD SUCC 125 MG/2 ML VIAL IVP SCH ×4 (00:45→17:13)
[2016-10-29] MEDS: ISOSORBIDE DINITRATE 10 MG TABLET PO SCH ×3 (00:45→17:14)
[2016-10-29] MEDS: IPRATROPIUM BROMIDE 0.5 MG/2.5 ML NEB SOLUTION NEB SCH ×7 (02:21→19:23)
[2016-10-29] MEDS: LEVALBUTEROL HCL 0.63 MG/3 ML NEB SOLUTION NEB SCH ×5 (02:21→19:23)
[2016-10-29] MEDS: GlipiZIDE 10 MG TABLET PO SCH ×2 (05:48→17:14)
[2016-10-29] MEDS: LEVOTHYROXINE SODIUM 25 MCG TABLET PO SCH (05:49)
[2016-10-29] MEDS: INSULIN ASPART 100 UNITS/ML SQ PRN ×4 (05:55→21:20)
[2016-10-29] MEDS: BENAZEPRIL HCL 20 MG TABLET PO SCH (09:14)
[2016-10-29] MEDS: LORATADINE 10 MG TABLET PO SCH (09:14)
[2016-10-29] MEDS: CARVEDILOL 3.125 MG TABLET PO SCH ×2 (09:14→21:16)
[2016-10-29] MEDS: SitaGLIPtin PHOSPHATE 50 MG TABLET PO SCH (09:14)
[2016-10-29] MEDS: DOCUSATE SODIUM 100 MG CAPSULE PO SCH ×2 (09:14→21:16)
[2016-10-29] MEDS: PANTOPRAZOLE SODIUM 40 MG/VIAL IVP SCH (09:14)
[2016-10-29] MEDS: POTASSIUM CHLORIDE 10 MEQ ER TABLET PO SCH (09:14)
[2016-10-29] MEDS: FUROSEMIDE 40 MG/4 ML VIAL IVP SCH ×2 (09:14→21:16)
[2016-10-29] MEDS: ASPIRIN 81 MG EC TABLET PO SCH (09:14)
[2016-10-29] MEDS: CLOPIDOGREL BISULFATE 75 MG TABLET PO SCH (09:14)
[2016-10-29] MEDS: CefTRIAXone 1 GM/DEXTROSE 50 ML IV SCH (13:27)
[2016-10-29] MEDS ORDERED: BENZONATATE 100 MG CAPSULE PO PRN (14:15)
[2016-10-29] MEDS: FLUTICASONE/VILANTEROL 200-25 MCG/INH INHALER [14] IH SCH (17:13)
[2016-10-29] MEDS: GuaiFENesin SR 600 MG ER TABLET PO SCH (21:16)
[2016-10-30] MEDS: MethylPREDNISolone SOD SUCC 125 MG/2 ML VIAL IVP SCH ×4 (00:03→18:00)
[2016-10-30] MEDS: ISOSORBIDE DINITRATE 10 MG TABLET PO SCH ×3 (00:03→17:36)
[2016-10-30] MEDS: IPRATROPIUM BROMIDE 0.5 MG/2.5 ML NEB SOLUTION NEB SCH ×7 (00:15→23:13)
[2016-10-30] MEDS: LEVALBUTEROL HCL 0.63 MG/3 ML NEB SOLUTION NEB SCH ×7 (00:15→23:13)
[2016-10-30 00:27] LABS: GLUCOSE COMMENT 1 Received Meds; GLUCOSE,POINT OF CARE 358 MG/DL (70-110)
[2016-10-30 05:25] VITALS: BP 151/78
[2016-10-30] MEDS: GlipiZIDE 10 MG TABLET PO SCH ×2 (06:16→17:36)
[2016-10-30] MEDS: LEVOTHYROXINE SODIUM 25 MCG TABLET PO SCH (06:16)
[2016-10-30] MEDS: INSULIN ASPART 100 UNITS/ML SQ PRN ×3 (06:26→17:38)
[2016-10-30 06:37] LABS: BASOPHILS % (AUTO) 0.1 % (0.0-2.0); EOSINOPHILS % (AUTO) 0 % (1.0-6.0); HEMATOCRIT 41.8 % (36-46); HEMOGLOBIN 13.4 g/dL (12.0-16.0); LYMPHOCYTES # (AUTO) 0.7 K/uL (1.0-4.8); LYMPHOCYTES % (AUTO) 6.3 % (22.0-44.0); MEAN CORPUSCULAR HEMOGLOBIN 28.8 pg (26.0-34.0); MEAN CORPUSCULAR HGB CONC 32.2 G/dL (31.0-37.0); MEAN CORPUSCULAR VOLUME 90 fL (80-100); MONOCYTES # (AUTO) 0.1 K/uL (0.1-1.0); MONOCYTES % (AUTO) 1.3 % (2.0-9.0); NEUTROPHILS # (AUTO) 9.9 K/uL (1.8-7.7); PLATELET COUNT (AUTO) 459 K/uL (150-450); RED BLOOD CELL COUNT(AUTO) 4.67 MIL/uL (4.00-5.20); RED CELL DISTRIBUTION WIDTH 15.7 % (11.5-14.5); WHITE BLOOD COUNT (AUTO) 10.7 K/uL (4.5-11.0)
[2016-10-30 06:41] LABS: NEUTROPHILS % (AUTO) 92.3 % (40.0-70.0)
[2016-10-30 06:55] LABS: CALCIUM, TOTAL 8.7 mg/dL (8.8-10.5); CREATININE 1.32 mg/dL (0.60-1.30)
[2016-10-30 07:53] VITALS: BP 163/82
[2016-10-30] MEDS: BENAZEPRIL HCL 20 MG TABLET PO SCH (10:13)
[2016-10-30] MEDS: SitaGLIPtin PHOSPHATE 50 MG TABLET PO SCH (10:13)
[2016-10-30] MEDS: DOCUSATE SODIUM 100 MG CAPSULE PO SCH ×2 (10:13→20:56)
[2016-10-30] MEDS: POTASSIUM CHLORIDE 10 MEQ ER TABLET PO SCH (10:13)
[2016-10-30] MEDS: LORATADINE 10 MG TABLET PO SCH (10:13)
[2016-10-30] MEDS: GuaiFENesin SR 600 MG ER TABLET PO SCH ×2 (10:13→20:56)
[2016-10-30] MEDS: CLOPIDOGREL BISULFATE 75 MG TABLET PO SCH (10:13)
[2016-10-30] MEDS: ASPIRIN 81 MG EC TABLET PO SCH (10:13)
[2016-10-30] MEDS: FUROSEMIDE 40 MG/4 ML VIAL IVP SCH ×2 (10:14→20:56)
[2016-10-30] MEDS: CARVEDILOL 3.125 MG TABLET PO SCH ×2 (10:14→20:56)
[2016-10-30] MEDS: FLUTICASONE/VILANTEROL 200-25 MCG/INH INHALER [14] IH SCH (10:14)
[2016-10-30] MEDS: PANTOPRAZOLE SODIUM 40 MG/VIAL IVP SCH (10:15)
[2016-10-30 11:28] VITALS: BP 137/63
[2016-10-30] MEDS: CefTRIAXone 1 GM/DEXTROSE 50 ML IV SCH (14:50)
[2016-10-30 16:21] VITALS: BP 141/60
[2016-10-30 19:17] VITALS: BP 137/71
[2016-10-30 20:17] LABS: GLUCOSE COMMENT 1 Received Meds; GLUCOSE,POINT OF CARE 240 MG/DL (70-110)
[2016-10-30 20:18] LABS: GLUCOSE COMMENT 1 Received Meds; GLUCOSE,POINT OF CARE 337 MG/DL (70-110)
[2016-10-30 20:18] LABS: GLUCOSE COMMENT 1 Received Meds; GLUCOSE,POINT OF CARE 347 MG/DL (70-110)
[2016-10-30 20:18] LABS: GLUCOSE COMMENT 1 Received Meds; GLUCOSE,POINT OF CARE 320 MG/DL (70-110)
[2016-10-30 20:18] LABS: GLUCOSE COMMENT 1 Received Meds; GLUCOSE,POINT OF CARE 359 MG/DL (70-110)
[2016-10-30 20:18] LABS: GLUCOSE COMMENT 1 Received Meds; GLUCOSE,POINT OF CARE 279 MG/DL (70-110)
[2016-10-30 23:40] VITALS: BP 151/78
[2016-10-30 23:47] LABS: GLUCOSE COMMENT 1 Doctor Notified; GLUCOSE,POINT OF CARE 412 MG/DL (70-110)
[2016-10-31] MEDS: ISOSORBIDE DINITRATE 10 MG TABLET PO SCH ×4 (01:22→23:29)
[2016-10-31] MEDS: MethylPREDNISolone SOD SUCC 125 MG/2 ML VIAL IVP SCH ×5 (01:22→23:29)
[2016-10-31] MEDS: IPRATROPIUM BROMIDE 0.5 MG/2.5 ML NEB SOLUTION NEB SCH ×6 (02:46→23:10)
[2016-10-31] MEDS: LEVALBUTEROL HCL 0.63 MG/3 ML NEB SOLUTION NEB SCH ×6 (02:46→23:11)
[2016-10-31 04:32] VITALS: BP 150/61
[2016-10-31] MEDS: INSULIN ASPART 100 UNITS/ML SQ PRN ×3 (06:09→20:55)
[2016-10-31] MEDS: LEVOTHYROXINE SODIUM 25 MCG TABLET PO SCH (06:52)
[2016-10-31] MEDS: GlipiZIDE 10 MG TABLET PO SCH ×2 (06:52→15:26)
[2016-10-31 06:58] LABS: HEMATOCRIT 43.5 % (36-46); HEMOGLOBIN 13.7 g/dL (12.0-16.0); MEAN CORPUSCULAR HEMOGLOBIN 28.2 pg (26.0-34.0); MEAN CORPUSCULAR HGB CONC 31.6 G/dL (31.0-37.0); MEAN CORPUSCULAR VOLUME 89 fL (80-100); PLATELET COUNT (AUTO) 470 K/uL (150-450); RED BLOOD CELL COUNT(AUTO) 4.88 MIL/uL (4.00-5.20); RED CELL DISTRIBUTION WIDTH 15.4 % (11.5-14.5); WHITE BLOOD COUNT (AUTO) 14.3 K/uL (4.5-11.0)
[2016-10-31 07:41] LABS: CALCIUM, TOTAL 8.7 mg/dL (8.8-10.5); CREATININE 1.11 mg/dL (0.60-1.30); POTASSIUM 4.1 mmol/L (3.5-5.1)
[2016-10-31 07:48] VITALS: BP 151/72
[2016-10-31] MEDS: FUROSEMIDE 40 MG/4 ML VIAL IVP SCH ×2 (09:14→20:52)
[2016-10-31] MEDS: PANTOPRAZOLE SODIUM 40 MG/VIAL IVP SCH (09:14)
[2016-10-31] MEDS: CLOPIDOGREL BISULFATE 75 MG TABLET PO SCH (09:15)
[2016-10-31] MEDS: BENAZEPRIL HCL 20 MG TABLET PO SCH (09:15)
[2016-10-31] MEDS: ASPIRIN 81 MG EC TABLET PO SCH (09:15)
[2016-10-31] MEDS: SitaGLIPtin PHOSPHATE 50 MG TABLET PO SCH (09:15)
[2016-10-31] MEDS: LORATADINE 10 MG TABLET PO SCH (09:15)
[2016-10-31] MEDS: POTASSIUM CHLORIDE 10 MEQ ER TABLET PO SCH (09:15)
[2016-10-31] MEDS: CARVEDILOL 3.125 MG TABLET PO SCH ×2 (09:15→20:53)
[2016-10-31] MEDS: DOCUSATE SODIUM 100 MG CAPSULE PO SCH ×2 (09:15→20:53)
[2016-10-31] MEDS: FLUTICASONE/VILANTEROL 200-25 MCG/INH INHALER [14] IH SCH (09:16)
[2016-10-31] MEDS: GuaiFENesin SR 600 MG ER TABLET PO SCH ×2 (09:17→20:53)
[2016-10-31 10:02] LABS: BAND NEUTROPHILS % (MANUAL) 15 % (1-5); LYMPHOCYTES % (MANUAL) 18 % (22-44); RBC MORPHOLOGY COMMENT NORMAL RBC MORPH; TOTAL CELLS COUNTED 100
[2016-10-31 11:47] VITALS: BP 129/58
[2016-10-31 13:56] LABS: GLUCOSE COMMENT 1 Received Meds; GLUCOSE,POINT OF CARE 241 MG/DL (70-110)
[2016-10-31 13:56] LABS: GLUCOSE COMMENT 1 Received Meds; GLUCOSE,POINT OF CARE 361 MG/DL (70-110)
[2016-10-31] MEDS: CefTRIAXone 1 GM/DEXTROSE 50 ML IV SCH (15:26)
[2016-10-31 15:52] VITALS: BP 111/45
[2016-10-31] MEDS ORDERED: INSULIN ASPART 100 UNITS/ML SQ ONE (17:30)
[2016-10-31 19:47] VITALS: BP 141/60
[2016-10-31] MEDS ORDERED: INSULIN DETEMIR 100 UNITS/ML SQ SCH (21:00)
[2016-11-01 00:02] VITALS: BP 135/63
[2016-11-01] MEDS: LEVALBUTEROL HCL 0.63 MG/3 ML NEB SOLUTION NEB SCH ×4 (02:25→15:54)
[2016-11-01] MEDS: IPRATROPIUM BROMIDE 0.5 MG/2.5 ML NEB SOLUTION NEB SCH ×4 (02:25→15:56)
[2016-11-01 04:31] VITALS: BP 112/66
[2016-11-01 05:46] LABS: GLUCOSE COMMENT 1 Received Meds; GLUCOSE,POINT OF CARE 414 MG/DL (70-110)
[2016-11-01] MEDS: LEVOTHYROXINE SODIUM 25 MCG TABLET PO SCH (06:05)
[2016-11-01] MEDS: MethylPREDNISolone SOD SUCC 125 MG/2 ML VIAL IVP SCH ×2 (06:05→12:02)
[2016-11-01] MEDS: GlipiZIDE 10 MG TABLET PO SCH ×2 (06:05→16:19)
[2016-11-01] MEDS: INSULIN ASPART 100 UNITS/ML SQ PRN ×2 (06:06→11:58)
[2016-11-01 07:23] LABS: EOSINOPHILS % (AUTO) 0 % (1.0-6.0); HEMOGLOBIN 13.8 g/dL (12.0-16.0); LYMPHOCYTES # (AUTO) 0.9 K/uL (1.0-4.8); LYMPHOCYTES % (AUTO) 5.7 % (22.0-44.0); MEAN CORPUSCULAR HEMOGLOBIN 28.5 pg (26.0-34.0); MEAN CORPUSCULAR HGB CONC 32.1 G/dL (31.0-37.0); MEAN CORPUSCULAR VOLUME 89 fL (80-100); MONOCYTES # (AUTO) 0.3 K/uL (0.1-1.0); MONOCYTES % (AUTO) 1.7 % (2.0-9.0); NEUTROPHILS # (AUTO) 14.4 K/uL (1.8-7.7); PLATELET COUNT (AUTO) 472 K/uL (150-450); RED BLOOD CELL COUNT(AUTO) 4.84 MIL/uL (4.00-5.20); RED CELL DISTRIBUTION WIDTH 15.7 % (11.5-14.5); WHITE BLOOD COUNT (AUTO) 15.6 K/uL (4.5-11.0)
[2016-11-01 07:34] LABS: NEUTROPHILS % (AUTO) 92.6 % (40.0-70.0)
[2016-11-01 07:43] VITALS: BP 145/69
[2016-11-01 07:58] LABS: ALBUMIN 2.4 g/dL (3.4-5.0); BILIRUBIN,TOTAL 0.4 mg/dL (0.1-1.0); CALCIUM, TOTAL 8.5 mg/dL (8.8-10.5); CREATININE 1.18 mg/dL (0.60-1.30); MAGNESIUM 2.3 mg/dL (1.80-2.40); POTASSIUM 4.6 mmol/L (3.5-5.1); TOTAL PROTEIN, SERUM 6.2 g/dL (6.4-8.2)
[2016-11-01 08:02] LABS: GLUCOSE COMMENT 1 Received Meds; GLUCOSE,POINT OF CARE 252 MG/DL (70-110)
[2016-11-01 08:02] LABS: GLUCOSE,POINT OF CARE 253 MG/DL (70-110)
[2016-11-01] MEDS: LORATADINE 10 MG TABLET PO SCH (08:11)
[2016-11-01] MEDS: DOCUSATE SODIUM 100 MG CAPSULE PO SCH (08:11)
[2016-11-01] MEDS: CARVEDILOL 3.125 MG TABLET PO SCH (08:11)
[2016-11-01] MEDS: BENAZEPRIL HCL 20 MG TABLET PO SCH (08:11)
[2016-11-01] MEDS: GuaiFENesin SR 600 MG ER TABLET PO SCH (08:11)
[2016-11-01] MEDS: CLOPIDOGREL BISULFATE 75 MG TABLET PO SCH (08:11)
[2016-11-01] MEDS: POTASSIUM CHLORIDE 10 MEQ ER TABLET PO SCH (08:12)
[2016-11-01] MEDS: ASPIRIN 81 MG EC TABLET PO SCH (08:12)
[2016-11-01] MEDS: FUROSEMIDE 40 MG/4 ML VIAL IVP SCH (08:12)
[2016-11-01] MEDS: ISOSORBIDE DINITRATE 10 MG TABLET PO SCH ×2 (08:12→16:19)
[2016-11-01] MEDS: PANTOPRAZOLE SODIUM 40 MG/VIAL IVP SCH (08:12)
[2016-11-01] MEDS: SitaGLIPtin PHOSPHATE 50 MG TABLET PO SCH (08:12)
[2016-11-01] MEDS: FLUTICASONE/VILANTEROL 200-25 MCG/INH INHALER [14] IH SCH (08:13)
[2016-11-01 11:05] VITALS: BP 125/66
[2016-11-01] MEDS: CefTRIAXone 1 GM/DEXTROSE 50 ML IV SCH (14:00)
[2016-11-01 15:44] VITALS: BP 112/45
[2016-11-02 07:22] LABS: GLUCOSE COMMENT 1 Received Meds; GLUCOSE,POINT OF CARE 345 MG/DL (70-110)
== END 2016-11-01 17:50 | disposition home or self-care (01) | DRG 194 ==
LOC: EMS 11:41 → 5N 17:51
PROVIDERS: ADMIT Internal Medicine; ATTEND Internal Medicine
DX: I13.0 Hypertensive heart and chronic kidney disease with heart failure and stage 1 through stage 4 chronic kidney disease, or unspecified chronic kidney disease (principal); J96.01 Acute respiratory failure with hypoxia; J18.9 Pneumonia, unspecified organism; N17.9 Acute kidney failure, unspecified; J44.0 Chronic obstructive pulmonary disease with (acute) lower respiratory infection; E11.22 Type 2 diabetes mellitus with diabetic chronic kidney disease; N39.0 Urinary tract infection, site not specified; J47.0 Bronchiectasis with acute lower respiratory infection; I50.43 Acute on chronic combined systolic (congestive) and diastolic (congestive) heart failure; N18.3 Chronic kidney disease, stage 3 (moderate); I48.91 Unspecified atrial fibrillation; J44.1 Chronic obstructive pulmonary disease with (acute) exacerbation; E03.9 Hypothyroidism, unspecified; E78.00 Pure hypercholesterolemia, unspecified; I25.10 Atherosclerotic heart disease of native coronary artery without angina pectoris; I35.1 Nonrheumatic aortic (valve) insufficiency; Z95.1 Presence of aortocoronary bypass graft; Z95.2 Presence of prosthetic heart valve; Z99.81 Dependence on supplemental oxygen
CPT/HCPCS: 71250; 82962; 83605; 83735; 87040; 87086; 93005; 93041; 93306; 94640; 96365; 96375; 99291; C9113; J0696; J1815; J1940; J2930; J7050

== ENCOUNTER → 2016-12-14 | Outpatient (CLI) | payer MEDICARE, MEDICAID ==
[~2016-12-14] VITALS: Ht 147.3 cm; Wt 76.0 kg
[2016-12-14 11:20] VITALS: BP 116/48
== END | disposition home or self-care (01) ==
LOC: SRCNTR 11:09
PROVIDERS: ATTEND Internal Medicine Critical Care Medicine
DX: J96.02 Acute respiratory failure with hypercapnia (principal); J96.01 Acute respiratory failure with hypoxia; I11.0 Hypertensive heart disease with heart failure; I50.31 Acute diastolic (congestive) heart failure; J44.1 Chronic obstructive pulmonary disease with (acute) exacerbation; R91.8 Other nonspecific abnormal finding of lung field; I25.10 Atherosclerotic heart disease of native coronary artery without angina pectoris; E11.9 Type 2 diabetes mellitus without complications
CPT/HCPCS: G0463

== ENCOUNTER → 2016-12-15 | Outpatient (CLI) | payer MEDICARE, MEDICAID ==
[~2016-12-15] VITALS: Ht 147.3 cm; Wt 76.0 kg
[2016-12-15 10:20] VITALS: BP 129/58
[2016-12-15 14:46] LABS: GLUCOSE,POINT OF CARE 214 MG/DL (70-110)
== END | disposition home or self-care (01) ==
LOC: SRCNTR 10:19
PROVIDERS: ATTEND Hospitalist
DX: E11.65 Type 2 diabetes mellitus with hyperglycemia (principal); E03.9 Hypothyroidism, unspecified; I11.0 Hypertensive heart disease with heart failure; I50.40 Unspecified combined systolic (congestive) and diastolic (congestive) heart failure; I48.91 Unspecified atrial fibrillation; M62.81 Muscle weakness (generalized); J44.9 Chronic obstructive pulmonary disease, unspecified; I25.10 Atherosclerotic heart disease of native coronary artery without angina pectoris; Z99.81 Dependence on supplemental oxygen; Z95.5 Presence of coronary angioplasty implant and graft; Z95.2 Presence of prosthetic heart valve; Z98.890 Other specified postprocedural states
CPT/HCPCS: 82962; G0463

== ENCOUNTER → 2016-12-16 | Outpatient (CLI) | payer MEDICARE, MEDICAID ==
[2016-12-16 09:19] LABS: BASOPHILS % (AUTO) 0.4 % (0.0-2.0); EOSINOPHILS % (AUTO) 2.5 % (1.0-6.0); HEMATOCRIT 38.9 % (36-46); HEMOGLOBIN 12.4 g/dL (12.0-16.0); LYMPHOCYTES # (AUTO) 2.9 K/uL (1.0-4.8); LYMPHOCYTES % (AUTO) 28.8 % (22.0-44.0); MEAN CORPUSCULAR HEMOGLOBIN 28.3 pg (26.0-34.0); MEAN CORPUSCULAR VOLUME 88 fL (80-100); MONOCYTES # (AUTO) 0.7 K/uL (0.1-1.0); MONOCYTES % (AUTO) 7.4 % (2.0-9.0); NEUTROPHILS # (AUTO) 6.1 K/uL (1.8-7.7); NEUTROPHILS % (AUTO) 60.9 % (40.0-70.0); PLATELET COUNT (AUTO) 475 K/uL (150-450)
[2016-12-16 09:21] LABS: GLUCOSE, URINE (UA) NEGATIVE (NEGATIVE); KETONES,URINE NEGATIVE (NEGATIVE); LEUKOCYTE ESTERASE ,URINE LARGE (NEGATIVE); OCCULT BLOOD,URINE NEGATIVE (NEGATIVE); PROTEIN,URINE TRACE (NEGATIVE)
[2016-12-16 09:22] LABS: APPEARANCE,URINE HAZY (CLEAR)
[2016-12-16 09:25] LABS: HEMOGLOBIN A1C 7.5 % (4.5-6.2)
[2016-12-16 09:31] LABS: RBC MORPHOLOGY COMMENT ABNORMAL RBC MORPH
[2016-12-16 09:37] LABS: ALBUMIN 3.5 g/dL (3.4-5.0); BILIRUBIN,TOTAL 0.5 mg/dL (0.1-1.0); CALCIUM, TOTAL 8.6 mg/dL (8.8-10.5); CHOL/HDL RATIO 6.7 (3.9-5.7); CREATININE 1.21 mg/dL (0.60-1.30); POTASSIUM 4.1 mmol/L (3.5-5.1); THYROID STIMULATING HORMONE 6.29 uIU/mL (0.36-3.74); TOTAL PROTEIN, SERUM 7.9 g/dL (6.4-8.2)
[2016-12-16 09:43] LABS: SQUAMOUS EPITHELIAL CELL,UR Moderate /LPF (None Seen)
== END | disposition home or self-care (01) ==
LOC: MSR 08:11
PROVIDERS: ATTEND Hospitalist
DX: E11.9 Type 2 diabetes mellitus without complications (principal); E03.9 Hypothyroidism, unspecified; I51.7 Cardiomegaly; I87.8 Other specified disorders of veins; J84.89 Other specified interstitial pulmonary diseases; I70.0 Atherosclerosis of aorta; R53.1 Weakness; Z95.2 Presence of prosthetic heart valve
CPT/HCPCS: 71020; 82271; 83036; 84439; 84443; 87086

== ENCOUNTER → 2016-12-22 | Outpatient (CLI) | payer MEDICARE, MEDICAID ==
[~2016-12-22] VITALS: Ht 147.3 cm; Wt 76.0 kg
[2016-12-22 14:09] VITALS: BP 160/46
== END | disposition home or self-care (01) ==
LOC: SRCNTR 14:01
PROVIDERS: ATTEND Internal Medicine Cardiovascular Disease
DX: J44.9 Chronic obstructive pulmonary disease, unspecified (principal); I11.0 Hypertensive heart disease with heart failure; I50.9 Heart failure, unspecified; I25.10 Atherosclerotic heart disease of native coronary artery without angina pectoris; E11.9 Type 2 diabetes mellitus without complications; E78.5 Hyperlipidemia, unspecified; I48.91 Unspecified atrial fibrillation
CPT/HCPCS: 93005; G0463

== ENCOUNTER → 2017-01-20 | Outpatient (CLI) | payer MEDICARE, MEDICAID ==
[~2017-01-20] VITALS: Ht 147.3 cm; Wt 76.0 kg
[~2017-01-20] MED LIST changes: +APIX5TAB PO; +ATOR20TA86 PO; +BENA10TA3 PO; +BENZ-26 PO; +BUDE10.2 IH; +CARV6 PO; +CIPR-278 PO; +FURO20 PO; +GEMF600T3 PO; +GLYB5 PO; +HYDR25TA PO; +ISOS5TAB5 PO; +LISI-660 PO; +METH2TAB PO; +METO25 PO; +METR500 PO; +MULT1CAP32 PO; +OMEP20 PO; +POTA10TA10 PO; +SIMV-260 PO; +SITA100 PO; +TIOT185 IH; +TRAM50TA4 PO
[2017-01-20 12:04] VITALS: BP 139/61
== END | disposition home or self-care (01) ==
LOC: SRCNTR 11:58
PROVIDERS: ATTEND Internal Medicine Critical Care Medicine
DX: J44.1 Chronic obstructive pulmonary disease with (acute) exacerbation (principal); J96.02 Acute respiratory failure with hypercapnia; J96.01 Acute respiratory failure with hypoxia; I25.10 Atherosclerotic heart disease of native coronary artery without angina pectoris; E11.9 Type 2 diabetes mellitus without complications; I11.0 Hypertensive heart disease with heart failure; I50.9 Heart failure, unspecified
CPT/HCPCS: G0463

== ENCOUNTER → 2017-01-23 | Outpatient (CLI) | payer MEDICARE, MEDICAID ==
[~2017-01-23] VITALS: Ht 147.3 cm; Wt 77.0 kg
[~2017-01-23] MED LIST changes: -ATOR20TA86 PO; -BENA10TA3 PO; -BENZ-26 PO; -BUDE10.2 IH; -CARV6 PO; -CIPR-278 PO; -FURO20 PO; -GEMF600T3 PO; -GLYB5 PO; -HYDR25TA PO; -ISOS5TAB5 PO; -LISI-660 PO; -METH2TAB PO; -METO25 PO; -METR500 PO; -MULT1CAP32 PO; -OMEP20 PO; -POTA10TA10 PO; -SIMV-260 PO; -SITA100 PO; -TIOT185 IH; -TRAM50TA4 PO
[2017-01-23 10:52] VITALS: BP 103/53
== END | disposition home or self-care (01) ==
LOC: SRCNTR 10:22
PROVIDERS: ATTEND Internal Medicine Cardiovascular Disease
DX: J44.9 Chronic obstructive pulmonary disease, unspecified (principal); I11.0 Hypertensive heart disease with heart failure; I50.9 Heart failure, unspecified; I25.10 Atherosclerotic heart disease of native coronary artery without angina pectoris; I48.91 Unspecified atrial fibrillation; E11.9 Type 2 diabetes mellitus without complications; E78.5 Hyperlipidemia, unspecified; Z95.5 Presence of coronary angioplasty implant and graft; Z79.82 Long term (current) use of aspirin
CPT/HCPCS: G0463

== ENCOUNTER → 2017-06-05 | Outpatient (CLI) | payer MEDICARE ==
[~2017-06-05] VITALS: Ht 147.3 cm; Wt 72.0 kg
[~2017-06-05] MED LIST changes: +A20IH1 NEB; +ADV250 IH; -ALPR0.255 PO; -ASPI-1093 PO; +BUME1TAB17 PO; +FURO40 IVP; -FURO40 PO; +IPRNEB NEB; +PRED20 PO; +SPIR25 PO
[2017-06-05 13:17] VITALS: BP 122/71
[2017-06-05 15:32] LABS: GLUCOMETER DEV NAME(LOC) SHC; GLUCOSE,POINT OF CARE 112 MG/DL (70-110)
== END | disposition home or self-care (01) ==
LOC: SRCNTR 12:36
PROVIDERS: ATTEND Hospitalist
DX: I25.10 Atherosclerotic heart disease of native coronary artery without angina pectoris (principal); E11.9 Type 2 diabetes mellitus without complications; I11.0 Hypertensive heart disease with heart failure; I50.9 Heart failure, unspecified; I48.91 Unspecified atrial fibrillation; J44.9 Chronic obstructive pulmonary disease, unspecified; E03.9 Hypothyroidism, unspecified; E78.5 Hyperlipidemia, unspecified; J47.9 Bronchiectasis, uncomplicated; Z79.01 Long term (current) use of anticoagulants; Z95.5 Presence of coronary angioplasty implant and graft
CPT/HCPCS: 82962; G0463

== ENCOUNTER → 2017-09-14 | Outpatient (CLI) | payer MEDICARE ==
[~2017-09-14] VITALS: Ht 147.3 cm; Wt 74.5 kg
[~2017-09-14] MED LIST changes: -A20IH1 NEB; -BENA20 PO; -FURO40 IVP; -IPRNEB NEB; -KDUR10 PO; -PRED20 PO
[2017-09-14 09:51] VITALS: BP 132/77
[2017-09-14 15:43] LABS: GLUCOMETER DEV NAME(LOC) SHC; GLUCOSE,POINT OF CARE 212 MG/DL (70-110)
== END | disposition home or self-care (01) ==
LOC: SRCNTR 09:32
PROVIDERS: ATTEND Hospitalist
DX: I11.0 Hypertensive heart disease with heart failure (principal); I50.9 Heart failure, unspecified; I25.10 Atherosclerotic heart disease of native coronary artery without angina pectoris; E11.65 Type 2 diabetes mellitus with hyperglycemia; I48.91 Unspecified atrial fibrillation; J47.9 Bronchiectasis, uncomplicated; Z95.5 Presence of coronary angioplasty implant and graft
CPT/HCPCS: 82962; G0463

== ENCOUNTER → 2018-04-19 | Outpatient (CLI) | payer MEDICARE ==
[~2018-04-19] VITALS: Ht 147.3 cm; Wt 73.0 kg
[~2018-04-19] MED LIST changes: -APIX5TAB PO; -ISOS10TA16 PO; +ISOS20TA7 PO; +ISOS30TA6 PO; +PARO10TA89 PO; +PARO30TA76 PO
[2018-04-19 09:06] VITALS: BP 124/71
[2018-04-19 10:39] LABS: GLUCOMETER DEV NAME(LOC) SHC; GLUCOSE,POINT OF CARE 211 MG/DL (70-110)
== END | disposition home or self-care (01) ==
LOC: SRCNTR 08:52
PROVIDERS: ATTEND Hospitalist
DX: I25.10 Atherosclerotic heart disease of native coronary artery without angina pectoris (principal); I48.91 Unspecified atrial fibrillation; E78.5 Hyperlipidemia, unspecified; E11.9 Type 2 diabetes mellitus without complications; I10 Essential (primary) hypertension; J47.9 Bronchiectasis, uncomplicated
CPT/HCPCS: 82962; G0463

== ENCOUNTER → 2018-06-15 | Outpatient (CLI) | payer MEDICARE ==
[~2018-06-15] VITALS: Ht 147.3 cm; Wt 73.5 kg
[~2018-06-15] MED LIST changes: -CLOP75 PO; -ISOS30TA6 PO; -PARO10TA89 PO; -PARO30TA76 PO
[2018-06-15 15:53] VITALS: BP 136/70
== END | disposition home or self-care (01) ==
LOC: SRCNTR 15:52
PROVIDERS: ATTEND Internal Medicine Critical Care Medicine
DX: J96.02 Acute respiratory failure with hypercapnia (principal); J96.01 Acute respiratory failure with hypoxia; J44.1 Chronic obstructive pulmonary disease with (acute) exacerbation; I50.9 Heart failure, unspecified; R91.8 Other nonspecific abnormal finding of lung field; J06.9 Acute upper respiratory infection, unspecified
CPT/HCPCS: G0463

== ENCOUNTER → 2018-06-28 | Outpatient (CLI) | payer MEDICARE ==
[~2018-06-28] VITALS: Ht 147.3 cm; Wt 73.2 kg
[~2018-06-28] MED LIST changes: +ISOS30TA6 PO; +PARO10TA89 PO; +PARO30TA76 PO
[2018-06-28 11:44] VITALS: BP 135/60
== END | disposition home or self-care (01) ==
LOC: SRCNTR 11:32
PROVIDERS: ATTEND Hospitalist
DX: I11.0 Hypertensive heart disease with heart failure (principal); I50.9 Heart failure, unspecified; E11.65 Type 2 diabetes mellitus with hyperglycemia; E03.9 Hypothyroidism, unspecified; I25.10 Atherosclerotic heart disease of native coronary artery without angina pectoris; J47.9 Bronchiectasis, uncomplicated; I48.91 Unspecified atrial fibrillation; R91.8 Other nonspecific abnormal finding of lung field
CPT/HCPCS: G0463

== ENCOUNTER → 2018-07-02 | Outpatient (CLI) | payer MEDICARE ==
[~2018-07-02] MED LIST changes: -ISOS20TA7 PO; -PARO30TA76 PO
[2018-07-02 14:12] VITALS: BP 133/63
== END | disposition home or self-care (01) ==
LOC: SRCNTR 13:24
PROVIDERS: ATTEND Internal Medicine Critical Care Medicine
DX: J96.02 Acute respiratory failure with hypercapnia (principal); J96.91 Respiratory failure, unspecified with hypoxia; J44.1 Chronic obstructive pulmonary disease with (acute) exacerbation; R91.8 Other nonspecific abnormal finding of lung field; J06.9 Acute upper respiratory infection, unspecified; I11.0 Hypertensive heart disease with heart failure; I50.9 Heart failure, unspecified; I25.10 Atherosclerotic heart disease of native coronary artery without angina pectoris; E11.9 Type 2 diabetes mellitus without complications
CPT/HCPCS: G0463

== ENCOUNTER → 2018-10-25 | Outpatient (CLI) | payer MEDICARE ==
[~2018-10-25] VITALS: Ht 147.3 cm; Wt 74.0 kg
[~2018-10-25] MED LIST changes: +APIX5TAB PO; +MONT10TA21 PO
[2018-10-25 11:18] VITALS: BP 108/54
== END | disposition home or self-care (01) ==
LOC: SRCNTR 10:32
PROVIDERS: ATTEND Hospitalist
DX: I25.10 Atherosclerotic heart disease of native coronary artery without angina pectoris (principal); I11.0 Hypertensive heart disease with heart failure; I50.9 Heart failure, unspecified; E11.9 Type 2 diabetes mellitus without complications; I48.91 Unspecified atrial fibrillation; J47.9 Bronchiectasis, uncomplicated
CPT/HCPCS: G0463

== ENCOUNTER → 2019-07-11 | Outpatient (CLI) | payer MEDICARE ==
[~2019-07-11] VITALS: Ht 147.3 cm; Wt 70.0 kg
[~2019-07-11] MED LIST changes: -BUME1TAB17 PO; +BUME1TAB34 PO; +BUME2TAB5 PO; +FLUT16H NASAL
[2019-07-11 10:25] VITALS: BP 147/72
[2019-07-11 10:42] LABS: GLUCOMETER DEV NAME(LOC) SHC.; GLUCOSE,POINT OF CARE 235 MG/DL (70-110)
== END | disposition home or self-care (01) ==
LOC: SRCNTR 10:21
PROVIDERS: ATTEND Hospitalist
DX: I25.10 Atherosclerotic heart disease of native coronary artery without angina pectoris (principal); M79.676 Pain in unspecified toe(s); I11.0 Hypertensive heart disease with heart failure; I50.9 Heart failure, unspecified; I48.91 Unspecified atrial fibrillation; A15.0 Tuberculosis of lung; E11.9 Type 2 diabetes mellitus without complications; Z95.5 Presence of coronary angioplasty implant and graft
CPT/HCPCS: G0463

== ENCOUNTER → 2019-07-15 | Outpatient (CLI) | payer MEDICARE, OTHER ==
[~2019-07-15] MED LIST changes: -BUME1TAB34 PO; -CARV3 PO; -FLUT16H NASAL; -PARO10TA89 PO
[2019-07-15 10:34] LABS: BASOPHILS % (AUTO) 0.7 % (0.0-2.0); HEMATOCRIT 45.2 % (36-46); HEMOGLOBIN 15.5 g/dL (12.0-16.0); LYMPHOCYTES # (AUTO) 2.7 K/uL (1.0-4.8); LYMPHOCYTES % (AUTO) 30.6 % (22.0-44.0); MEAN CORPUSCULAR HEMOGLOBIN 31.7 pg (26.0-34.0); MEAN CORPUSCULAR HGB CONC 34.4 G/dL (31.0-37.0); MEAN CORPUSCULAR VOLUME 92 fL (80-100); MONOCYTES # (AUTO) 0.7 K/uL (0.1-1.0); MONOCYTES % (AUTO) 8.3 % (2.0-9.0); NEUTROPHILS # (AUTO) 5.1 K/uL (1.8-7.7); NEUTROPHILS % (AUTO) 57.4 % (40.0-70.0); PLATELET COUNT (AUTO) 315 K/uL (150-450); RED BLOOD CELL COUNT(AUTO) 4.89 MIL/uL (4.00-5.20); RED CELL DISTRIBUTION WIDTH 13.9 % (11.5-14.5)
[2019-07-15 10:43] LABS: HEMOGLOBIN A1C 8.5 % (4.5-6.2)
[2019-07-15 10:56] LABS: ALANINE AMINOTRANSFERASE 20 U/L (12-78); ALBUMIN 3.4 g/dL (3.4-5.0); ALKALINE PHOSPHATASE 83 U/L (46-116); ANION GAP 8 mmol/L (8-16); ASPARTATE AMINOTRANSFERASE 23 U/L (15-37); BILIRUBIN,TOTAL 0.9 mg/dL (0.1-1.0); CALCIUM, TOTAL 9.1 mg/dL (8.8-10.5); CARBON DIOXIDE 29 mmol/L (22-29); CHLORIDE 94 mmol/L (98-107); CHOL/HDL RATIO 7.4 (3.9-5.7); CHOLESTEROL 259 mg/dL (131-200); CREATININE 1.78 mg/dL (0.60-1.30); GLOMERULAR FILTR. RATE CALC 27 mL/min (>60); GLUCOSE,RANDOM 198 mg/dL (70-110); HDL CHOLESTEROL 35 mg/dL (40-60); SODIUM SERUM 131 mmol/L (136-145); TOTAL PROTEIN, SERUM 7.8 g/dL (6.4-8.2); TRIGLYCERIDES 595 mg/dL (15-150); UREA NITROGEN, BLOOD 35 mg/dL (7-18)
[2019-07-15 11:07] LABS: URIC ACID 12.2 mg/dL (2.6-7.2)
== END | disposition home or self-care (01) ==
LOC: MSR 08:51
PROVIDERS: ATTEND Hospitalist
DX: E11.51 Type 2 diabetes mellitus with diabetic peripheral angiopathy without gangrene (principal); I70.202 Unspecified atherosclerosis of native arteries of extremities, left leg; I70.201 Unspecified atherosclerosis of native arteries of extremities, right leg
CPT/HCPCS: 83036; 84439; 84443; 84550; 93925

== ENCOUNTER → 2019-07-25 | Outpatient (CLI) | payer MEDICARE, OTHER ==
[~2019-07-25] VITALS: Ht 147.3 cm; Wt 67.0 kg
[~2019-07-25] MED LIST changes: +FLUT16H NASAL
[2019-07-25 10:26] VITALS: BP_SYST 134
[2019-07-25 10:48] LABS: GLUCOMETER DEV NAME(LOC) SHC.; GLUCOSE,POINT OF CARE 191 MG/DL (70-110)
== END | disposition home or self-care (01) ==
LOC: SRCNTR 10:25
PROVIDERS: ATTEND Hospitalist
DX: E11.65 Type 2 diabetes mellitus with hyperglycemia (principal); I48.91 Unspecified atrial fibrillation; I10 Essential (primary) hypertension; J47.9 Bronchiectasis, uncomplicated; F03.90 Unspecified dementia, unspecified severity, without behavioral disturbance, psychotic disturbance, mood disturbance, and anxiety; E03.9 Hypothyroidism, unspecified
CPT/HCPCS: 82962; G0463

== ENCOUNTER → 2020-03-12 | Outpatient (CLI) | payer MEDICARE, OTHER ==
[~2020-03-12] MED LIST changes: +MONT-35 PO; -MONT10TA21 PO
== END | disposition home or self-care (01) ==
LOC: SRCNTR 12:12
PROVIDERS: ATTEND Hospitalist
DX: I11.0 Hypertensive heart disease with heart failure (principal); I50.9 Heart failure, unspecified; I25.10 Atherosclerotic heart disease of native coronary artery without angina pectoris; E11.9 Type 2 diabetes mellitus without complications; J47.9 Bronchiectasis, uncomplicated; I48.91 Unspecified atrial fibrillation; R91.8 Other nonspecific abnormal finding of lung field; Z79.899 Other long term (current) drug therapy; Z95.2 Presence of prosthetic heart valve
CPT/HCPCS: Q3014

== ENCOUNTER → 2020-04-13 | Outpatient (CLI) | payer MEDICARE, OTHER ==
[2020-04-13 11:19] LABS: APPEARANCE,URINE TURBID (CLEAR); BILIRUBIN,URINE NEGATIVE (NEGATIVE); GLUCOSE, URINE (UA) NEGATIVE (NEGATIVE); KETONES,URINE NEGATIVE (NEGATIVE); LEUKOCYTE ESTERASE ,URINE LARGE (NEGATIVE); NITRATE,URINE POSITIVE (NEGATIVE); OCCULT BLOOD,URINE TRACE (NEGATIVE); PH,URINE 5.5 (5.0-8.0); PROTEIN,URINE TRACE (NEGATIVE)
[2020-04-13 11:27] LABS: RBC,URINE 0-2 /HPF (0-2)
[2020-04-13 11:30] LABS: BACTERIA,URINE Few /HPF (None Seen); SQUAMOUS EPITHELIAL CELL,UR Moderate /LPF (None Seen); YEAST,URINE Few /HPF (None Seen)
== END | disposition home or self-care (01) ==
LOC: LABPV 08:21
PROVIDERS: ATTEND Hospitalist
DX: R30.0 Dysuria (principal)
CPT/HCPCS: 87086; 81001-TC

== ENCOUNTER → 2020-08-24 | Outpatient (CLI) | payer MEDICARE, OTHER ==
[~2020-08-24] VITALS: Ht 147.3 cm; Wt 65.0 kg
[~2020-08-24] MED LIST changes: -ADV250 IH; +FLUT1DIS6 IH; -ISOS30TA6 PO; +ISOS30TA68 PO
[2020-08-24 11:05] VITALS: BP 115/54
== END | disposition home or self-care (01) ==
LOC: SRCNTR 10:51
PROVIDERS: ATTEND Hospitalist
DX: I10 Essential (primary) hypertension (principal); E78.5 Hyperlipidemia, unspecified; M16.11 Unilateral primary osteoarthritis, right hip
CPT/HCPCS: G0463; Z7500

== ENCOUNTER → 2020-10-05 | Outpatient (CLI) | payer MEDICARE, OTHER | END | disposition home or self-care (01) | LOC: RADPV 08:39 | PROVIDERS: ATTEND Hospitalist | DX: I70.213 Atherosclerosis of native arteries of extremities with intermittent claudication, bilateral legs (principal); I65.23 Occlusion and stenosis of bilateral carotid arteries | CPT/HCPCS: 93925; 93970 ==

== ENCOUNTER → 2020-12-10 | Outpatient (CLI) | payer MEDICARE, OTHER ==
[2020-12-10 11:41] VITALS: BP 130/66
== END | disposition home or self-care (01) ==
LOC: SRCNTR 11:11
PROVIDERS: ATTEND Hospitalist
DX: I25.10 Atherosclerotic heart disease of native coronary artery without angina pectoris (principal); I11.0 Hypertensive heart disease with heart failure; I50.9 Heart failure, unspecified; E11.9 Type 2 diabetes mellitus without complications; J47.9 Bronchiectasis, uncomplicated; Z79.899 Other long term (current) drug therapy; Z95.2 Presence of prosthetic heart valve; Z98.890 Other specified postprocedural states
CPT/HCPCS: G0463; Z7500

== ENCOUNTER → 2021-01-29 | Outpatient (CLI) | payer MEDICARE, OTHER ==
[~2021-01-29] MED LIST changes: +SPIR-37 PO; -SPIR25 PO
[2021-01-29 10:25] LABS: BASOPHILS % (AUTO) 0.9 % (0.0-2.0); EOSINOPHILS % (AUTO) 2.6 % (1.0-6.0); HEMOGLOBIN 13.5 g/dL (12.0-16.0); LYMPHOCYTES # (AUTO) 2.3 K/uL (1.0-4.8); LYMPHOCYTES % (AUTO) 21.2 % (22.0-44.0); MEAN CORPUSCULAR HEMOGLOBIN 30.4 pg (26.0-34.0); MEAN CORPUSCULAR HGB CONC 33.9 G/dL (31.0-37.0); MEAN CORPUSCULAR VOLUME 90 fL (80-100); MONOCYTES % (AUTO) 9.3 % (2.0-9.0); PLATELET COUNT (AUTO) 355 K/uL (150-450); RED BLOOD CELL COUNT(AUTO) 4.46 MIL/uL (4.00-5.20); RED CELL DISTRIBUTION WIDTH 13.8 % (11.5-14.5)
[2021-01-29 10:48] LABS: HEMOGLOBIN A1C 11.2 % (3.8-5.6)
[2021-01-29 11:01] LABS: ALBUMIN 3.5 g/dL (3.4-5.0); BILIRUBIN,TOTAL 0.8 mg/dL (0.1-1.0); CHOL/HDL RATIO 4.4 (3.9-5.7); CREATININE 2.15 mg/dL (0.60-1.30); POTASSIUM 4.6 mmol/L (3.5-5.1); THYROID STIMULATING HORMONE 3.59 uIU/mL (0.36-3.74)
== END | disposition home or self-care (01) ==
LOC: LABPV 09:53
PROVIDERS: ATTEND Hospitalist
DX: I11.0 Hypertensive heart disease with heart failure (principal); I50.9 Heart failure, unspecified; E11.9 Type 2 diabetes mellitus without complications; E78.5 Hyperlipidemia, unspecified
CPT/HCPCS: 80053; 80061; 83036; 84443; 85025

== ENCOUNTER → 2021-06-18 | Outpatient (CLI) | payer MEDICARE, OTHER ==
[~2021-06-18] MED LIST changes: +ATOR20TA86 PO; +GABA-1216 PO; +HYDR-4723 PO; +INSLAN SQ; +INSNOV SQ
[2021-06-18 09:59] VITALS: BP 132/62
[2021-06-18 13:27] LABS: GLUCOMETER DEV NAME(LOC) SHC.; GLUCOSE,POINT OF CARE 185 MG/DL (70-110)
== END | disposition home or self-care (01) ==
LOC: SRCNTR 09:35
PROVIDERS: ATTEND Hospitalist
DX: I25.10 Atherosclerotic heart disease of native coronary artery without angina pectoris (principal); I11.0 Hypertensive heart disease with heart failure; I50.9 Heart failure, unspecified; E11.9 Type 2 diabetes mellitus without complications; J47.9 Bronchiectasis, uncomplicated; I48.91 Unspecified atrial fibrillation
CPT/HCPCS: 82962 ×2; G0463

== ENCOUNTER → 2021-09-02 | Outpatient (CLI) | payer MEDICARE, OTHER ==
[~2021-09-02] MED LIST changes: -FLUT1DIS6 IH; +FURO40 PO; -GLIP10 PO; -ISOS30TA68 PO; +ISOS30TA92 PO; -SPIR-37 PO
[2021-09-02 12:15] LABS: BASOPHILS % (AUTO) 0.5 % (0.0-2.0); EOSINOPHILS % (AUTO) 2.8 % (1.0-6.0); HEMATOCRIT 40.9 % (36-46); HEMOGLOBIN 13.3 g/dL (12.0-16.0); LYMPHOCYTES # (AUTO) 1.6 K/uL (1.0-4.8); LYMPHOCYTES % (AUTO) 20.3 % (22.0-44.0); MEAN CORPUSCULAR HEMOGLOBIN 27.1 pg (26.0-34.0); MEAN CORPUSCULAR HGB CONC 32.6 G/dL (31.0-37.0); MEAN CORPUSCULAR VOLUME 83 fL (80-100); MONOCYTES # (AUTO) 0.7 K/uL (0.1-1.0); MONOCYTES % (AUTO) 8.3 % (2.0-9.0); NEUTROPHILS # (AUTO) 5.4 K/uL (1.8-7.7); NEUTROPHILS % (AUTO) 68.1 % (40.0-70.0); PLATELET COUNT (AUTO) 422 K/uL (150-450); RED BLOOD CELL COUNT(AUTO) 4.93 MIL/uL (4.00-5.20)
[2021-09-02 12:51] LABS: ALBUMIN 3.6 g/dL (3.4-5.0); BILIRUBIN,TOTAL 0.9 mg/dL (0.1-1.0); CALCIUM, TOTAL 9.5 mg/dL (8.8-10.5); CREATININE 1.34 mg/dL (0.60-1.30); FREE T4 (FREE THYROXINE) 1.29 ng/dL (0.76-1.46); POTASSIUM 4.5 mmol/L (3.5-5.1); THYROID STIMULATING HORMONE 3.93 uIU/mL (0.36-3.74); TOTAL PROTEIN, SERUM 8.3 g/dL (6.4-8.2)
== END | disposition home or self-care (01) ==
LOC: LABPV 11:06
PROVIDERS: ATTEND Hospitalist
DX: Z01.89 Encounter for other specified special examinations (principal); I10 Essential (primary) hypertension; Z79.899 Other long term (current) drug therapy
CPT/HCPCS: 80053; 83036; 84439; 84443; 85025

== ENCOUNTER → 2021-09-02 | Outpatient (CLI) | payer MEDICARE, OTHER ==
[2021-09-02 10:40] VITALS: BP 132/57
== END | disposition home or self-care (01) ==
LOC: SRCNTR 09:58
PROVIDERS: ATTEND Hospitalist
DX: I11.0 Hypertensive heart disease with heart failure (principal); I50.9 Heart failure, unspecified; I25.10 Atherosclerotic heart disease of native coronary artery without angina pectoris; E11.9 Type 2 diabetes mellitus without complications; J47.9 Bronchiectasis, uncomplicated; I48.91 Unspecified atrial fibrillation; Z95.5 Presence of coronary angioplasty implant and graft; Z95.4 Presence of other heart-valve replacement
CPT/HCPCS: G0463

== ENCOUNTER 2021-12-03 09:39 | Emergency (ER) | payer MEDICARE, OTHER ==
[~2021-12-03] VITALS: Ht 144.8 cm; Wt 71.8 kg
[~2021-12-03 09:39] MED LIST changes: -BUME2TAB5 PO; -GABA-1216 PO; -HYDR-4723 PO
[2021-12-03] MEDS ORDERED: [UNRECOGNIZED DRUG - CODE] PO (10:14)
[2021-12-03] MEDS ORDERED: BUME1TAB34 PO (10:14)
[2021-12-03 11:08] LABS: BASOPHILS % (AUTO) 0.8 % (0.0-2.0); EOSINOPHILS % (AUTO) 4.5 % (1.0-6.0); HEMATOCRIT 41.8 % (36-46); HEMOGLOBIN 13.8 g/dL (12.0-16.0); LYMPHOCYTES # (AUTO) 1.2 K/uL (1.0-4.8); MEAN CORPUSCULAR HEMOGLOBIN 27.9 pg (26.0-34.0); MEAN CORPUSCULAR VOLUME 85 fL (80-100); MONOCYTES # (AUTO) 0.7 K/uL (0.1-1.0); MONOCYTES % (AUTO) 8.3 % (2.0-9.0); NEUTROPHILS # (AUTO) 6.2 K/uL (1.8-7.7); NEUTROPHILS % (AUTO) 72.4 % (40.0-70.0); PLATELET COUNT (AUTO) 312 K/uL (150-450); RED BLOOD CELL COUNT(AUTO) 4.95 MIL/uL (4.00-5.20); RED CELL DISTRIBUTION WIDTH 17.1 % (11.5-14.5)
[2021-12-03 11:18] LABS: CALCIUM, TOTAL 8.7 mg/dL (8.8-10.5); CREATININE 1.33 mg/dL (0.60-1.30); POTASSIUM 4.1 mmol/L (3.5-5.1)
[2021-12-03 11:24] LABS: ALBUMIN 3.2 g/dL (3.4-5.0); BILIRUBIN,TOTAL 0.9 mg/dL (0.1-1.0); INR 1.1 (0.9-1.1); PROTHROMBIN TIME 11.5 SEC (9.4-11.6); TOTAL PROTEIN, SERUM 7.6 g/dL (6.4-8.2)
[2021-12-03 11:28] LABS: LACTIC ACID 1.4 mmol/L (0.4-2.0)
[2021-12-03 11:42] LABS: APPEARANCE,URINE CLEAR (CLEAR); BILIRUBIN,URINE NEGATIVE (NEGATIVE); GLUCOSE, URINE (UA) NEGATIVE (NEGATIVE); KETONES,URINE NEGATIVE (NEGATIVE); LEUKOCYTE ESTERASE ,URINE MODERATE (NEGATIVE); NITRATE,URINE POSITIVE (NEGATIVE); OCCULT BLOOD,URINE NEGATIVE (NEGATIVE); PH,URINE 6.5 (5.0-8.0); PROTEIN,URINE NEGATIVE (NEGATIVE); SPECIFIC GRAVITIY, URINE 1.006 (1.003-1.030); UROBILINOGEN,URINE <=1.0 mg/dL (<=1.0)
[2021-12-03 12:13] LABS: BACTERIA,URINE Many /HPF (None Seen); RBC,URINE None Seen /HPF (0-2)
[2021-12-03 12:15] LABS: RENAL EPITHELIAL CELLS,URINE Rare /LPF (None Seen)
[2021-12-03 13:04] VITALS: BP 144/83
[2021-12-03] MEDS ORDERED: NITR-75 PO (14:04)
== END 2021-12-03 14:38 | disposition home or self-care (01) ==
LOC: EMS 09:39
DX: N39.0 Urinary tract infection, site not specified (principal); I11.0 Hypertensive heart disease with heart failure; I50.9 Heart failure, unspecified; I25.10 Atherosclerotic heart disease of native coronary artery without angina pectoris; E11.9 Type 2 diabetes mellitus without complications; J44.9 Chronic obstructive pulmonary disease, unspecified; Z79.4 Long term (current) use of insulin; Z79.899 Other long term (current) drug therapy
CPT/HCPCS: 71045; 74176; 80053; 81001; 82962; 83605; 84484; 85025; 85610; 85730; 87086; 93005; 99285; 36415-L1; 36415-TC

== ENCOUNTER → 2021-12-15 | Outpatient (CLI) | payer MEDICARE, OTHER ==
[~2021-12-15] VITALS: Ht 147.3 cm; Wt 63.0 kg
[~2021-12-15] MED LIST changes: +BUME1TAB34 PO; +GLIP10TA10 PO; +NITR-75 PO
[2021-12-15 13:13] VITALS: BP 127/55
== END | disposition home or self-care (01) ==
LOC: SRCNTR 12:06
PROVIDERS: ATTEND Hospitalist
DX: I25.10 Atherosclerotic heart disease of native coronary artery without angina pectoris (principal); I11.0 Hypertensive heart disease with heart failure; I50.9 Heart failure, unspecified; E11.9 Type 2 diabetes mellitus without complications; J47.9 Bronchiectasis, uncomplicated; I48.91 Unspecified atrial fibrillation
CPT/HCPCS: G0463; Z7500

== ENCOUNTER → 2021-12-22 | Outpatient (CLI) | payer MEDICARE, OTHER ==
[~2021-12-22] MED LIST changes: -BUME1TAB34 PO; -INSLAN SQ; -INSNOV SQ
== END | disposition home or self-care (01) ==
LOC: RADPV 09:27
PROVIDERS: ATTEND Hospitalist
DX: N18.9 Chronic kidney disease, unspecified (principal)
CPT/HCPCS: 76770

== ENCOUNTER → 2021-12-22 | Outpatient (CLI) | payer MEDICARE, OTHER ==
[2021-12-22 11:21] VITALS: BP 135/58
[2021-12-22 12:23] VITALS: BP 135/58
== END | disposition home or self-care (01) ==
LOC: SRCNTR 10:34
PROVIDERS: ATTEND Internal Medicine Critical Care Medicine
DX: I11.0 Hypertensive heart disease with heart failure (principal); I50.9 Heart failure, unspecified; I25.10 Atherosclerotic heart disease of native coronary artery without angina pectoris; E11.9 Type 2 diabetes mellitus without complications; J44.9 Chronic obstructive pulmonary disease, unspecified; I48.91 Unspecified atrial fibrillation; R06.00 Dyspnea, unspecified; Z99.81 Dependence on supplemental oxygen
CPT/HCPCS: G0463

== ENCOUNTER → 2021-12-29 | Outpatient (CLI) | payer MEDICARE, OTHER | END | disposition home or self-care (01) | LOC: RADPV 08:43 | PROVIDERS: ATTEND Internal Medicine Critical Care Medicine | DX: I08.1 Rheumatic disorders of both mitral and tricuspid valves (principal); I50.9 Heart failure, unspecified | CPT/HCPCS: 93306 ==

== ENCOUNTER → 2021-12-29 | Outpatient (CLI) | payer MEDICARE, OTHER ==
[~2021-12-29] VITALS: Ht 147.3 cm; Wt 64.0 kg
[2021-12-29 10:41] VITALS: BP 132/56
== END | disposition home or self-care (01) ==
LOC: SRCNTR 09:51
PROVIDERS: ATTEND Internal Medicine Cardiovascular Disease
DX: I44.7 Left bundle-branch block, unspecified (principal); E11.9 Type 2 diabetes mellitus without complications; E78.5 Hyperlipidemia, unspecified; I48.20 Chronic atrial fibrillation, unspecified; J44.9 Chronic obstructive pulmonary disease, unspecified; Z95.2 Presence of prosthetic heart valve
CPT/HCPCS: 93005; G0463

== ENCOUNTER → 2022-03-14 | Outpatient (CLI) | payer MEDICARE, OTHER ==
[~2022-03-14] VITALS: Ht 147.3 cm; Wt 61.8 kg
[2022-03-14 11:18] VITALS: BP 123/59
== END | disposition home or self-care (01) ==
LOC: SRCNTR 10:55
PROVIDERS: ATTEND Internal Medicine Cardiovascular Disease
DX: E11.9 Type 2 diabetes mellitus without complications (principal); Z09 Encounter for follow-up examination after completed treatment for conditions other than malignant neoplasm; E78.5 Hyperlipidemia, unspecified; J44.9 Chronic obstructive pulmonary disease, unspecified; I48.20 Chronic atrial fibrillation, unspecified; Z95.4 Presence of other heart-valve replacement
CPT/HCPCS: G0463; Z7500

== ENCOUNTER → 2022-05-12 | Outpatient (CLI) | payer MEDICARE, OTHER ==
[~2022-05-12] VITALS: Ht 144.8 cm; Wt 67.0 kg
[~2022-05-12] MED LIST changes: +DAPA10TA PO; -FLUT16H NASAL; +FLUT16SP NASAL; +LOSA-381 PO; +METO25 PO
[2022-05-12 10:17] VITALS: BP 130/60
== END | disposition home or self-care (01) ==
LOC: SRCNTR 09:43
PROVIDERS: ATTEND Hospitalist
DX: I11.0 Hypertensive heart disease with heart failure (principal); I50.9 Heart failure, unspecified; I25.10 Atherosclerotic heart disease of native coronary artery without angina pectoris; E11.9 Type 2 diabetes mellitus without complications; I48.91 Unspecified atrial fibrillation; J47.9 Bronchiectasis, uncomplicated; H91.92 Unspecified hearing loss, left ear; Z95.2 Presence of prosthetic heart valve
CPT/HCPCS: G0463; Z7500

== ENCOUNTER → 2022-09-13 | Outpatient (CLI) | payer MEDICARE, OTHER ==
[~2022-09-13] MED LIST changes: -ISOS30TA92 PO; -NITR-75 PO; +PANT-31 PO
[2022-09-13 09:43] LABS: BASOPHILS % (AUTO) 0.8 % (0.0-2.0); EOSINOPHILS % (AUTO) 0.8 % (1.0-6.0); HEMATOCRIT 41.1 % (36-46); LYMPHOCYTES # (AUTO) 1.7 K/uL (1.0-4.8); LYMPHOCYTES % (AUTO) 10.4 % (22.0-44.0); MEAN CORPUSCULAR HEMOGLOBIN 28.2 pg (26.0-34.0); MEAN CORPUSCULAR HGB CONC 31.6 G/dL (31.0-37.0); MEAN CORPUSCULAR VOLUME 89 fL (80-100); MONOCYTES # (AUTO) 1.1 K/uL (0.1-1.0); MONOCYTES % (AUTO) 6.8 % (2.0-9.0); NEUTROPHILS % (AUTO) 81.2 % (40.0-70.0); PLATELET COUNT (AUTO) 212 K/uL (150-450); RED BLOOD CELL COUNT(AUTO) 4.61 MIL/uL (4.00-5.20); RED CELL DISTRIBUTION WIDTH 16.9 % (11.5-14.5)
[2022-09-13 09:49] LABS: HEMOGLOBIN A1C 9.3 % (3.8-5.6)
[2022-09-13 10:04] LABS: ALBUMIN 2.7 g/dL (3.4-5.0); BILIRUBIN,TOTAL 0.8 mg/dL (0.1-1.0); CALCIUM, TOTAL 8.5 mg/dL (8.8-10.5); CHOL/HDL RATIO 3.6 (3.9-5.7); CREATININE 1.38 mg/dL (0.60-1.30); FREE T4 (FREE THYROXINE) 1.06 ng/dL (0.76-1.46); POTASSIUM 4.9 mmol/L (3.5-5.1); THYROID STIMULATING HORMONE 3.98 uIU/mL (0.36-3.74); TOTAL PROTEIN, SERUM 7.1 g/dL (6.4-8.2)
== END | disposition home or self-care (01) ==
LOC: LABMN 09:12
PROVIDERS: ATTEND Hospitalist
DX: Z01.89 Encounter for other specified special examinations (principal)
CPT/HCPCS: 80053; 80061; 83036; 84439; 84443; 85025

== ENCOUNTER → 2022-09-14 | Outpatient (CLI) | payer MEDICARE, OTHER ==
[2022-09-14 14:04] VITALS: BP 136/84
== END | disposition home or self-care (01) ==
LOC: SRCNTR 13:04
PROVIDERS: ATTEND Hospitalist
DX: I11.0 Hypertensive heart disease with heart failure (principal); I50.22 Chronic systolic (congestive) heart failure; I25.10 Atherosclerotic heart disease of native coronary artery without angina pectoris; E11.9 Type 2 diabetes mellitus without complications; J47.9 Bronchiectasis, uncomplicated; I48.91 Unspecified atrial fibrillation; Z95.4 Presence of other heart-valve replacement
CPT/HCPCS: G0463; Z7500

== ENCOUNTER → 2022-12-22 | Outpatient (CLI) | payer MEDICARE, OTHER ==
[~2022-12-22] MED LIST changes: +AMOX1TAB16 PO; +ATOR20TA PO; -ATOR20TA86 PO; -LOSA-381 PO; +PRED-729 PO
[2022-12-22 14:46] VITALS: BP 107/59; PULSE 76; RESP 14; TEMP 98.3; O2SAT 93
== END | disposition home or self-care (01) ==
LOC: SRCNTR 12:51
PROVIDERS: ATTEND Hospitalist
DX: J44.9 Chronic obstructive pulmonary disease, unspecified (principal); J96.00 Acute respiratory failure, unspecified whether with hypoxia or hypercapnia; J18.8 Other pneumonia, unspecified organism; Z79.01 Long term (current) use of anticoagulants; Z79.899 Other long term (current) drug therapy
CPT/HCPCS: G0463; Z7500

== ENCOUNTER → 2023-01-05 | Outpatient (CLI) | payer MEDICARE, OTHER ==
[2023-01-05 12:46] LABS: GLUCOMETER DEV NAME(LOC) SHC.; GLUCOSE,POINT OF CARE 249 MG/DL (70-110)
[2023-01-05 13:57] VITALS: BP 142/61; PULSE 61; RESP 15; TEMP 98; O2SAT 100
[2023-01-06 09:29] LABS: APPEARANCE,URINE CLEAR (CLEAR); BILIRUBIN,URINE NEGATIVE (NEGATIVE); GLUCOSE, URINE (UA) >=1000 mg/dL (NEGATIVE); KETONES,URINE NEGATIVE (NEGATIVE); LEUKOCYTE ESTERASE ,URINE MODERATE (NEGATIVE); NITRATE,URINE NEGATIVE (NEGATIVE); OCCULT BLOOD,URINE NEGATIVE (NEGATIVE); PROTEIN,URINE NEGATIVE (NEGATIVE); SPECIFIC GRAVITIY, URINE 1.008 (1.003-1.030); UROBILINOGEN,URINE <=1.0 mg/dL (<=1.0)
[2023-01-06 09:38] LABS: BACTERIA,URINE None Seen /HPF (None Seen); RBC,URINE None Seen /HPF (0-2); SQUAMOUS EPITHELIAL CELL,UR Moderate /LPF (None Seen)
== END | disposition home or self-care (01) ==
LOC: SRCNTR 11:19
PROVIDERS: ATTEND Hospitalist
DX: E11.65 Type 2 diabetes mellitus with hyperglycemia (principal); I10 Essential (primary) hypertension; E78.5 Hyperlipidemia, unspecified; M16.11 Unilateral primary osteoarthritis, right hip; R69 Illness, unspecified; R60.0 Localized edema; Z79.01 Long term (current) use of anticoagulants; Z79.899 Other long term (current) drug therapy; Z99.81 Dependence on supplemental oxygen
CPT/HCPCS: 81001; 82962; 87086; 87186; G0463

== ENCOUNTER → 2023-01-06 | Outpatient (CLI) | payer MEDICARE, OTHER ==
[2023-01-06 10:52] LABS: BASOPHILS % (AUTO) 0.4 % (0.0-2.0); EOSINOPHILS % (AUTO) 0.9 % (1.0-6.0); HEMATOCRIT 42.8 % (36-46); HEMOGLOBIN 13.9 g/dL (12.0-16.0); LYMPHOCYTES # (AUTO) 1.5 K/uL (1.0-4.8); LYMPHOCYTES % (AUTO) 10.5 % (22.0-44.0); MEAN CORPUSCULAR HEMOGLOBIN 29.2 pg (26.0-34.0); MEAN CORPUSCULAR HGB CONC 32.6 G/dL (31.0-37.0); MEAN CORPUSCULAR VOLUME 90 fL (80-100); MONOCYTES # (AUTO) 0.7 K/uL (0.1-1.0); MONOCYTES % (AUTO) 4.9 % (2.0-9.0); NEUTROPHILS % (AUTO) 83.3 % (40.0-70.0); PLATELET COUNT (AUTO) 196 K/uL (150-450); RED BLOOD CELL COUNT(AUTO) 4.77 MIL/uL (4.00-5.20); RED CELL DISTRIBUTION WIDTH 17.8 % (11.5-14.5)
[2023-01-06 11:31] LABS: ALBUMIN 2.8 g/dL (3.4-5.0); CALCIUM, TOTAL 8.8 mg/dL (8.8-10.5); CREATININE 1.2 mg/dL (0.60-1.30); POTASSIUM 4.1 mmol/L (3.5-5.1); TOTAL PROTEIN, SERUM 6.9 g/dL (6.4-8.2)
== END | disposition home or self-care (01) ==
LOC: LABMN 10:19
PROVIDERS: ATTEND Hospitalist
DX: Z01.89 Encounter for other specified special examinations (principal); Z79.899 Other long term (current) drug therapy
CPT/HCPCS: 80053; 85025

== ENCOUNTER → 2023-01-12 | Outpatient (CLI) | payer MEDICARE, OTHER | END | disposition home or self-care (01) | LOC: RADMN 10:08 | PROVIDERS: ATTEND Hospitalist | DX: I63.9 Cerebral infarction, unspecified (principal); G93.40 Encephalopathy, unspecified | CPT/HCPCS: 70450 ==

== ENCOUNTER → 2023-04-03 | Outpatient (CLI) | payer MEDICARE, OTHER ==
[~2023-04-03] MED LIST changes: +ACET-2247 PO; +ALBU2.5V39 NEB; -AMOX1TAB16 PO; +APIX2.5T PO; +BUDE0.5A NEB; +DOCU-385 PO; +ETHY1MED2 NASAL; +GABA-1216 PO; +INSLAN SQ; +INSU3INS3 SQ; +IPRA0.2S49 NEB; +IPRA3AMP24 NEB; +ISOS30TA92 PO; +NEED-462 SQ; -PRED-729 PO; +SPIR-37 PO; +UMEC1DIS IH
[2023-04-03 11:36] VITALS: BP 127/68; PULSE 84; RESP 18; TEMP 98.3; O2SAT 96
[2023-04-03 12:05] LABS: GLUCOMETER DEV NAME(LOC) SHC.; GLUCOSE,POINT OF CARE 188 MG/DL (70-110)
== END | disposition home or self-care (01) ==
LOC: SRCNTR 11:06
PROVIDERS: ATTEND Hospitalist
DX: Z09 Encounter for follow-up examination after completed treatment for conditions other than malignant neoplasm (principal); I11.0 Hypertensive heart disease with heart failure; I50.9 Heart failure, unspecified; I25.10 Atherosclerotic heart disease of native coronary artery without angina pectoris; E11.9 Type 2 diabetes mellitus without complications; J47.9 Bronchiectasis, uncomplicated; I48.91 Unspecified atrial fibrillation; Z95.2 Presence of prosthetic heart valve
CPT/HCPCS: 82962; G0463

== ENCOUNTER → 2023-06-19 | Outpatient (CLI) | payer MEDICARE, OTHER ==
[~2023-06-19] MED LIST changes: -ACET-2247 PO; -ALBU2.5V39 NEB; -APIX5TAB PO; -ETHY1MED2 NASAL; -FURO40 PO; -GLIP10TA10 PO; -IPRA0.2S49 NEB; +METF-1211 PO; -SITA50 PO
[2023-06-19 11:49] VITALS: BP 121/50; PULSE 65; RESP 17; TEMP 98.2; O2SAT 94
[2023-06-19 11:56] LABS: GLUCOMETER DEV NAME(LOC) SHC.; GLUCOSE,POINT OF CARE 265 MG/DL (70-110)
== END | disposition home or self-care (01) ==
LOC: SRCNTR 10:16
PROVIDERS: ATTEND Hospitalist
DX: Z09 Encounter for follow-up examination after completed treatment for conditions other than malignant neoplasm (principal); I11.0 Hypertensive heart disease with heart failure; I50.9 Heart failure, unspecified; I25.10 Atherosclerotic heart disease of native coronary artery without angina pectoris; E11.9 Type 2 diabetes mellitus without complications; J47.9 Bronchiectasis, uncomplicated; Z95.2 Presence of prosthetic heart valve
CPT/HCPCS: 82962